=== PATIENT | female | born 1950 | race Caucasian/White ===

== ENCOUNTER 2020-08-24 12:10 | Outpatient (NON) | payer MEDICARE, SELFPAY ==
[2020-08-25 00:30] LABS: SARS-CoV-2 RNA PCR Positive
== END 2020-08-24 12:11 ==
LOC: ANHCOVIDDT 12:11
PROVIDERS: PCP Family Medicine; Visit Provider Family Medicine
DX: U07.1 COVID-19 (principal)
CPT/HCPCS: 87635; C9803; U0003

== ENCOUNTER 2020-11-11 14:08 | Outpatient (CLI) | payer MEDICARE, SELFPAY ==
--- NOTE | ~2020-11-11 | MM_ITS ---
EXAMINATION: MM screening [place] [facility] HISTORY: Screening TECHNIQUE: Craniocaudal and mediolateral oblique 3-D tomosynthesis images were obtained and synthetic 2-D images were generated. CAD analysis was submitted and interpreted. COMPARISON: Comparison to multiple prior studies sequentially, with oldest reviewed study dated 12/2016. BREAST PARENCHYMAL COMPOSITION: The breasts are extremely dense, which lowers the sensitivity of mamm ography. FINDINGS: There is no evidence of suspicious mass, calcification, or architectural distortion to sugg est malignancy in either breast. There has been no suspicious interval change. IMPRESSION: 1. No mammographic evidence of malignancy. 2. Recommend routine screening mammography in one year. BI-RADS Category 1: Negative Reviewed, dictated and finalized at location A. 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
== END 2020-11-11 14:09 | disposition home or self-care (01) ==
LOC: ANHIMG 14:13
PROVIDERS: PCP Physician Assistant; Visit Provider Obstetrics & Gynecology
DX: Z12.31 Encounter for screening mammogram for malignant neoplasm of breast (principal)
CPT/HCPCS: 77063; 77067

== ENCOUNTER 2021-11-24 08:40 | Outpatient (CLI) | payer MEDICARE, SELFPAY ==
--- NOTE | ~2021-11-24 | MM_ITS ---
EXAMINATION: MM screening [facility] HISTORY: Screening mammogram TECHNIQUE: Craniocaudal and mediolateral oblique 3-D tomosynthesis images were obtained and synthetic 2-D images were generated. CAD analysis was submitted and interpreted. COMPARISON: 11/11/2020, 11/05/2019, 11/21/2018, 10/30/2018 BREAST PARENCHYMAL COMPOSITION: The breasts are extremely dense, which lowers the sensitivity of mamm ography. FINDINGS: Scattered benign-appearing calcifications are present. There is no evidence of suspicious m ass, calcification, or architectural distortion to suggest malignancy in either breast. There has bee n no suspicious interval change. IMPRESSION: 1. No mammographic evidence of malignancy. 2. Recommend routine screening mammography in one year. BI-RADS Category 2: Benign finding(s). Reviewed, dictated and finalized at location A. 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
== END 2021-11-24 08:41 | disposition home or self-care (01) ==
LOC: ANHIMG 08:45
PROVIDERS: PCP Family Medicine; Visit Provider Nurse Practitioner Obstetrics & Gynecology
DX: Z12.31 Encounter for screening mammogram for malignant neoplasm of breast (principal)
CPT/HCPCS: 77063; 77067

== ENCOUNTER 2022-02-16 12:50 | Outpatient (CLI) | payer MEDICARE, SELFPAY ==
--- NOTE | ~2022-02-16 | DEXA_ITS ---
Bone Density Report Name: LINO MATUTE Age: 72 Sex: Female Ethnicity: White Date of : 1950 Indication: monitoring treatment; height loss; postmenopausal Referring Provider: CHIKA, FRANCISCA Ward Study: Bone densitometry was performed. Exam Date: February 16, 2022 Accession number: [id number] Bone Density: Region BMD T-score Z-score Classification AP Spine(L1-L4) 1.100 0.5 2.8 Normal Femoral Neck (Left) 0.861 0.1 2.1 Normal Total Hip (Left) 0.951 0.1 1.7 Normal Femoral Neck (Right) 0.819 -0.3 1.7 Normal Total Hip (Right) 0.976 0.3 1.9 Normal Total Hip Mean 0.964 0.2 1.8 Normal World Health Organization criteria for BMD impression classify patients as: Normal (T-score at or above -1.0), Osteopenia (T-score between -1.0 and -2.5), or Osteoporosis (T-score at or below -2.5). 10-year Fracture Risk: FRAX not reported because: All T-scores for Spine Total, Hip Total, Femoral Neck at or above -1.0 Treated for osteoporosis Previous Exams: Region Exam Age BMD T-score BMD Change BMD Change Date g/cm2 vs Baseline vs Previous AP Spine (L1-L4) 02/16/2022 72 1.100 0.5 0.114 (11.6%)# 0.114 (11.6%)# 08/22/2012 62 0.986 -0.6 Total Hip(Left) 02/16/2022 72 0.951 0.1 -0.022 (-2.3%) -0.035 (-3.6%) 11/01/2016 66 0.987 0.4 0.013 (1.3%)# 0.013 (1.3%)# 08/22/2012 62 0.974 0.3 Total Hip(Right) 02/16/2022 72 0.976 0.3 -0.024 (-2.4%) -0.017 (-1.7%) 11/01/2016 66 0.993 0.4 -0.007 (-0.7%) -0.007 (-0.7%) 08/22/2012 62 1.000 0.5 *Denotes significance at 95% confidence level, LSC for AP Spine = 0.022 g/cm2, LSC for Total Hip = 0.027 g/cm2 # Denotes dissimilar scan types or analysis methods Clinical Information Provided by Patient: Is being treated for osteoporosis Has used the following medications: Fosamax (i.e. alendronate) Patient maximum height was 65 Menopause Age: 49 Onset of menses at age 13 Number of children 0 Missed period for more than 6 months in a row Impression: The patient has normal bone mass. The BMD for the Total Hip(Left) decreased, changing by -3.6% since the last DXA exam. Discussion: SIGNIFICANT BONE LOSS OBSERVED. Adherence to therapy (including calcium and vitamin D intake) should be assessed. If compliance is not a factor, review management and exclusion of secondary causes of bone loss. It is important to ask patients whether they are taking their medications and to e
== END 2022-02-16 12:51 | disposition home or self-care (01) ==
PROVIDERS: PCP Family Medicine; Visit Provider Nurse Practitioner Obstetrics & Gynecology
DX: Z78.0 Asymptomatic menopausal state (principal)
CPT/HCPCS: 77080

== ENCOUNTER 2022-11-16 15:27 | Emergency (ER) | payer MEDICARE, SELFPAY ==
--- NOTE | ~2022-11-16 | XR_ITS ---
EXAMINATION: XR ankle LT min 3V DATE: 11/16/2022 15:57 INDICATION: Post traumatic lateral left ankle pain and bruising TECHNIQUE: Anteroposterior, oblique, mortise, and lateral views of the left ankle were obtained. COMPARISON: None. FINDINGS: There is a nondisplaced oblique fracture through the distal fibula with a fracture plane exiting medi ally at the level of the tibiotalar joint. No other fracture identified. Specifically the medial and posterior malleoli as well as the talar dome are intact. Alignment at the left ankle and hindfoot re jyoti essentially anatomic with a congruent ankle mortise. Suggestion mild hallux valgus with mild os teoarthritis at the first metacarpophalangeal joint. Soft tissue swelling overlying the lateral malle olus. No ankle joint effusion. IMPRESSION: 1. Nondisplaced oblique fracture of the distal left fibula consistent with a Thurman type B injury josue indra. Reviewed, dictated and finalized at location A. 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 Nondisplaced oblique fracture of the distal left fibula consistent with a We dylon type B injury pattern.
[2022-11-16 15:41] VITALS: BP 133/68; PULSE 78; RESP 16; TEMP 36.4; O2SAT 98
--- NOTE | 2022-11-16 16:08 | ED.LOWEXIN ---
HPI - Extremity Injury (Lower) General Chief Complaint: Extremity Injury, Lower Stated Complaint: Fall Injury/Left Ankle Source: patient and RN notes reviewed History of Present Illness HPI Narrative: 72-year-old female presents to urgent care with complaints of left lateral ankle pain. Patient states approximately 3 hours prior to arrival she slipped on the gravel causing her to fall onto her buttocks. Patient reports her only injury is her left lateral ankle. Patient has some left leg pain and believes this is from walking on it weird. Patient denies any head injury or LOC. Denies any neck pain, chest pain, shortness of breath, abdominal pain, headache, dizziness, or vomiting. The patient has not had anything for her pain. Some parts of this dictation were generated by voice recognition software and may contain typographical and/or grammatical inaccuracies. Related Data Home Medications Medication Instructions Recorded Confirmed estradiol 1 mg tablet 1 mg PO DAILY 03/29/20 09/19/22 medroxyprogesterone 5 mg tablet 5 mg PO DAILY 03/29/20 09/19/22 Saccharomyces boulardii 250 mg 5,000 mmu cells PO DAILY 04/26/22 09/19/22 capsule (Daily Probiotic (S. boulardii)) calcium carbonate 500 mg calcium 500 mg PO DAILY 04/26/22 09/19/22 (1,250 mg) chewable tablet (Calcium 500) glucosamine-chondroitin 750 mg-600 tablet PO 04/26/22 09/19/22 mg tablet loratadine 10 mg tablet 10 mg PO DAILY 04/26/22 09/19/22 magnesium 250 mg tablet 250 mg PO DAILY 04/26/22 09/19/22 melatonin 1 mg tablet 1 mg PO QHS 04/26/22 09/19/22 multivitamin 1 tablet PO DAILY 04/26/22 09/19/22 omega-3 fatty acids-fish oil 360 1 cap PO DAILY 04/26/22 09/19/22 mg-1,200 mg capsule (Fish Oil) Allergies Allergy/AdvReac Type Severity Reaction Status Date / Time tetracycline Allergy Unknown Skin Verified 11/01/22 08:21 irritation Review of Systems Review of Systems: CONSTITUTIONAL: Denies fever, chills, or sweats. EYES: Denies visual changes, redness, or discharge. ENT: Denies otalgia and sore throat CARDIOVASCULAR: Denies chest pain, palpitations, or edema. RESPIRATORY: Denies cough or dyspnea. GASTROINTESTINAL: Denies abdominal pain, nausea, vomiting, or diarrhea. GENITOURINARY: Denies dysuria or hematuria. SKIN: Denies rash or itching. MUSCULOSKELETAL: Reports left lateral ankle pain and swelling NEUROLOGIC: Denies headache, numbness, or weakness. [facility] Past Medical History Medical History Hypothyroidism determined by thyroid function test Family History Family History Sibling Family history of cardiovascular disease Social History Social History Smoking status: Never smoker Second hand tobacco smoke exposure: No Alcohol intake: current Alcohol use details: socially; seldom Substance use: never Substance use type: does not use Lack of Transportation: No Lack of Food: Never True Current Housing: I Have Housing Concerned About Future Housing: No Difficulty Paying Gas/Electric Bills: No Difficulty Paying for Meds: No Currently Unemployed: No Education: Trade/Vocational Certificate Difficulty w/ Childcare or Family Care: No Occupation/Education: retired Gender identity (if verbalized by the patient): Female Spiritual care concerns: No Agree to blood products: Yes Comments At the time of my signature, I reviewed and agree with the nursing past medical, surgical, social, and family history. There is no relevant family history pertinent to the patient complaint. Exam Narrative: GENERAL: This is a well-nourished, well-developed patient, in no apparent distress. HEAD: normocephalic, atraumatic. EYES: PERRL. Sclera clear/white. Vision is grossly intact. EARS: External ears normal, auditory canals clear and without drainage, TMs n
== END 2022-11-16 16:46 | disposition home or self-care (01) ==
PROVIDERS: Emergency Provider Nurse Practitioner Family; PCP Family Medicine
DX: S82.832A Other fracture of upper and lower end of left fibula, initial encounter for closed fracture (principal); W01.0XXA Fall on same level from slipping, tripping and stumbling without subsequent striking against object, initial encounter; E03.9 Hypothyroidism, unspecified
CPT/HCPCS: 29125; 73610; 99214; G0463

== ENCOUNTER 2023-01-17 08:12 | Outpatient (CLI) | payer MEDICARE, SELFPAY ==
--- NOTE | ~2023-01-17 | MM_ITS ---
EXAMINATION: MM screening [place] [facility] HISTORY: Screening mammogram TECHNIQUE: Craniocaudal and mediolateral oblique 3-D tomosynthesis images were obtained and synthetic 2-D images were generated. CAD analysis was submitted and interpreted. COMPARISON: November 24, 2021, November 11, 2020, November 05, 2019 bilateral screening mammogram [place] BREAST PARENCHYMAL COMPOSITION: The breasts are extremely dense, which lowers the sensitivity of mamm ography. FINDINGS: Scattered bilateral benign calcifications. There is no evidence of suspicious mass, calcifi cation, or architectural distortion to suggest malignancy in either breast. There has been no suspici ous interval change. IMPRESSION: 1. No mammographic evidence of malignancy. 2. Recommend routine screening mammography in one year. BI-RADS Category 2: Benign finding(s). Reviewed, dictated and finalized at location A.
== END 2023-01-17 08:13 | disposition home or self-care (01) ==
LOC: ANHIMG 08:14
PROVIDERS: PCP Family Medicine; Visit Provider Nurse Practitioner Obstetrics & Gynecology
DX: Z12.31 Encounter for screening mammogram for malignant neoplasm of breast (principal)
CPT/HCPCS: 77063; 77067

== ENCOUNTER 2024-03-07 14:04 | Outpatient (CLI) | payer MEDICARE, SELFPAY ==
--- NOTE | ~2024-03-07 | MM_ITS ---
EXAMINATION: MM screening [place] [facility] HISTORY: Screening mammogram TECHNIQUE: Craniocaudal and mediolateral oblique 3-D tomosynthesis images were obtained and synthetic 2-D images were generated. Left rotated lateral craniocaudal view. CAD analysis was submitted and in terpreted. COMPARISON: January 17, 2023, November 24, 2021 bilateral screening mammogram examinations BREAST PARENCHYMAL COMPOSITION: The breasts are extremely dense, which lowers the sensitivity of mamm ography. FINDINGS: Numerous bilateral benign calcifications are again noted. There is no evidence of suspiciou s mass, calcification, or architectural distortion to suggest malignancy in either breast. There has been no suspicious interval change. IMPRESSION: 1. No mammographic evidence of malignancy. 2. Recommend routine screening mammography in one year. BI-RADS Category 2: Benign finding(s). Reviewed, dictated and finalized at location B.
== END 2024-03-07 14:05 | disposition home or self-care (01) ==
LOC: ANHIMG 14:08
PROVIDERS: PCP Family Medicine; Visit Provider Nurse Practitioner Obstetrics & Gynecology
DX: Z12.31 Encounter for screening mammogram for malignant neoplasm of breast (principal)
CPT/HCPCS: 77063; 77067

== ENCOUNTER 2024-06-11 08:54 | Outpatient (CLI) | payer MEDICARE, SELFPAY ==
--- NOTE | ~2024-06-11 | XR_ITS ---
Lumbosacral Spine: AP, oblique, and lateral views Clinical History: Pain Findings: The normal lordotic curve is maintained. No fracture seen. There is 4 mm retrolisthesis of L2 over L3. There is severe degenerative tearing at L1-L2, L2-L3, L4-L5, and L5-S1. There is moderate to advanced facet arthropathy throughout the lumbar spine. The sacroiliac joints are normally outlin ed. Impression: Advanced degenerative spondylosis, as above. 4 mm retrolisthesis of L2 over L3. Reviewed, dictated and finalized at location M. Impression: Advanced degenerative spondylosis, as above. 4 mm retrolisthesis of L2 over L3.
--- NOTE | ~2024-06-11 | XR_ITS ---
AP view of the pelvis and AP and lateral views of the bilateral hips Clinical history: Pain Findings: No acute fracture or dislocation is seen. Osseous alignment is anatomic. Bilateral hip and SI joint spaces are preserved. Soft tissues are unremarkable. Impression: No significant abnormality is seen. Reviewed, dictated and finalized at [facility]. Impression: No significant abnormality is seen.
== END 2024-06-11 08:55 | disposition home or self-care (01) ==
LOC: ANHIMG 08:59
PROVIDERS: PCP Family Medicine; Visit Provider Physician Assistant Medical
DX: M47.816 Spondylosis without myelopathy or radiculopathy, lumbar region (principal); M25.551 Pain in right hip; M25.552 Pain in left hip
CPT/HCPCS: 72110; 73521

== ENCOUNTER 2024-06-24 12:13 | Outpatient (RCR) | payer MEDICARE, SELFPAY ==
--- NOTE | 2024-06-24 12:08 | OPREHPOC ---
Outpatient Therapy Plan of Care This is a Multidisciplinary Plan of Care that may contain components documented by all disciplines (PT, OT, and ST.) PT Problem 1 PT Problem #1 Knowledge Deficit PT Goal 1 Goal / Goal Update The patient will be independent in a home exercise program. Target Visit 4 PT Problem 2 PT Problem #2 Pain PT Goal 1 Goal / Goal Update The patient will report no greater than 1/10 low back pain with sitting for 2+ hours. Target Visit 8 PT Problem 3 PT Problem #3 Impaired Functional Mobil PT Goal 1 Goal / Goal Update The patient will demonstrate 10% or less self perceived disability per the Back Index questionnaire. Target Visit 8 PT Problem 4 PT Problem #4 Impaired Strength PT Goal 1 Goal / Goal Update The patient will demonstrate 4-/5 or greater bilateral hip abduction and extension strength. Target Visit 8
--- NOTE | 2024-06-24 12:08 | PTOPEVAL1 ---
Assessment and note entered by Ava Hernandez, PT Evaluation Information Assessment Status Evaluation Diagnosis M43.06 ICD-10 Condition Codes (PT) Pain in low back M54.50 Onset 06/18/24 Subjective Information Chana Snell reports she has had chronic low back pain for several years. She recently had x- rays performed and was told she has degenerative changes. She is noting stiffness in the lower back that makes it feel like her back is about to break. She notes worse symptoms with prolonged sitting. She has a history of sciatica in the past that was treated by a chiropractor. Reported Pain Level Pain Score 0: Self Report Assessment PT Clinical Summary Chana Snell presents with chronic and intermittent low back pain. She is primarily complaining of stiffness. She has difficulty with prolonged sitting. She objectively demonstrates decreased lumbar AROM, decreased bilateral hamstring and piriformis flexbility, decreased core and hip strength, and decreased PA mobility in the lower thoracic and upper lumbar spine. She will benefit from skilled PT to address these limitations. Plan of Care Interventions Electrical Stimulation,Hot Pack/Cold Pack,Manual Therapy,Mechanical Traction,Neuro Re-education, Patient/Caregiver Educati,Therapeutic Activities, Therapeutic Exercise PT Services Indicated Yes Treatment Frequency and 2 times a week for 8 visits Duration These treatments will address the objective and functional deficits as defined above. The patient will be advanced safely and appropriately in order for the patient to progress towards his/her prior level of function. Additional exercises will be introduced and as well as a comprehensive home exercise program upon discharge, if needed, ?to ensure carryover of functional gains achieved in the clinic. This treatment plan has been reviewed and agreement upon by the patient.
--- NOTE | 2024-07-17 10:21 | OPREHPOC ---
Outpatient Therapy Plan of Care This is a Multidisciplinary Plan of Care that may contain components documented by all disciplines (PT, OT, and ST.) PT Problem 1 PT Problem #1 Knowledge Deficit PT Goal 1 Goal / Goal Update The patient will be independent in a home exercise program. Target Visit 4 Progress Met PT Problem 2 PT Problem #2 Pain PT Goal 1 Goal / Goal Update The patient will report no greater than 1/10 low back pain with sitting for 2+ hours. Target Visit 8 Progress Not Met PT Problem 3 PT Problem #3 Impaired Functional Mobil PT Goal 1 Goal / Goal Update The patient will demonstrate 10% or less self perceived disability per the Back Index questionnaire. Target Visit 8 Progress Not Met PT Problem 4 PT Problem #4 Impaired Strength PT Goal 1 Goal / Goal Update The patient will demonstrate 4-/5 or greater bilateral hip abduction and extension strength. Target Visit 8 Progress Met
--- NOTE | 2024-07-17 10:22 | PTOPDC ---
Assessment and note entered by JT File, PT Evaluation Information Assessment Status Discharge Diagnosis M43.06 ICD-10 Condition Codes (PT) Pain in low back M54.50 Onset 06/18/24 Subjective Information patient reports she feels better now than she did this morning, but still has some pain in the R lower back/flank in the mornings. she reports the longer she is up and moving, the better she feels. she reports she does feel a little better, but no significantly since being in skilled PT. Reported Pain Level Pain Score 2: Self Report Assessment PT Clinical Summary mrs. briceno presents to skilled PT for her 8th skilled PT visit today. she presents today with continued symptoms of pain with sleeping and no change in subjective functional reports per the oswestry. she has met HEP and strength goals of the hips. however, this only attributes for 50% of her goals. she will DC skilled PT today, continue with HEP independent, and follow up with PCP for referral to pain management or other specialty care. Plan of Care PT Services Indicated Yes
== END 2024-07-17 10:48 | disposition home or self-care (01) ==
LOC: CHSPT 12:13
PROVIDERS: Visit Provider Physician Assistant Medical
DX: M43.06 Spondylolysis, lumbar region (principal)
CPT/HCPCS: 97110; 97140; 97161

== ENCOUNTER 2024-10-01 10:36 | Outpatient (CLI) | payer MEDICARE, SELFPAY ==
--- NOTE | ~2024-10-01 | MR_ITS ---
MRI of the lumbar spine Clinical History: Spondylolisthesis Technique: Axial T2-weighted images, and sagittal T1-weighted, T2-weighted, and T2 fat-sat images wer e acquired. Findings: No acute fracture seen. There is 4-5 mm retrolisthesis of L2 over L3. There is minimal grad e 1 retrolisthesis of L4 over L5. No suspicious bone marrow signal abnormality seen. There is moderat e type I changes about the L1-L2 and L2-L3 disc spaces. At L1-L2, there is severe degenerative disc narrowing. There is minimal disc bulge with moderate to s evere facet arthropathy. No central canal stenosis. There is moderate right neural foraminal narrowin g, and mild left neural foraminal narrowing. At L2-L3, there is severe degenerative spurring. There is diffuse disc bulge with moderate to severe facet arthropathy. There is left lateral recess stenosis and severe left neural foraminal narrowing. There is moderate right neural foraminal narrowing. No ariadne central canal stenosis. L3-L4, there is mild disc bulge and moderate facet arthropathy. No central canal stenosis. There is m oderate left neural foraminal narrowing. Right neural foramen preserved. At L4-L5, there is severe degenerative disc narrowing. There is mild disc bulge with moderate facet a rthropathy. No central canal stenosis. There is moderate bilateral neural foraminal narrowing. At L5-S1, there is severe degenerative disc narrowing, with moderate facet arthropathy. No central ca nal stenosis. There is moderate to advanced bilateral neural foraminal narrowing. Paravertebral soft tissues are unremarkable. Impression: Severe degenerative spondylosis, with extensive degenerative disc narrowing and multilevel advanced n eural foraminal narrowing. Please see details above. 4-5 mm retrolisthesis of L2 over L3. Minimal grade 1 retrolisthesis of L4 over L5. Reviewed, dictated and finalized at location . 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 Please see details above. 4-5 mm retrolisthesis of L2 over L3. Minimal grade 1 retrolisthesis of L4 over L5.
== END 2024-10-01 10:37 | disposition home or self-care (01) ==
LOC: MICIMG 10:36
PROVIDERS: PCP Family Medicine; Visit Provider Student in an Organized Health Care Education/Training Program
DX: M43.16 Spondylolisthesis, lumbar region (principal); M47.896 Other spondylosis, lumbar region
CPT/HCPCS: 72148

== ENCOUNTER 2024-12-22 08:38 | Outpatient (CLI) | payer MEDICARE, SELFPAY ==
[2024-12-22 09:00] LABS: Basophils Absolute Auto 0.04 K/mm3 (0.00-0.10); Basophils Percent Auto 0.6 % (0.0-1.0); Eosinophils Absolute Auto 0.25 K/mm3 (0.02-0.50); Eosinophils Percent Auto 3.8 % (1.0-6.0); Hematocrit 41.1 % (35.0-42.0); Hemoglobin 12.9 g/dL (11.7-13.8); Immature Granulocyte Absolute 0.02 K/mm3 (0.00-0.00); Immature Granulocyte Percent A 0.3 % (0.0-0.0); Lymphocytes Absolute Auto 2.03 K/mm3 (1.10-4.50); Lymphocytes Percent Auto 30.9 % (18.0-42.0); Mean Corpuscular HGB Conc 31.4 g/dL (32-36); Mean Corpuscular Volume 95.6 fL (78.0-102.0); Monocytes Absolute Auto 0.63 K/mm3 (0.10-0.90); Monocytes Percent Auto 9.6 % (2.0-11.0); Neutrophils Absolute Auto 3.61 K/mm3 (1.70-7.20); Neutrophils Percent Auto 54.8 % (50.0-70.0); Platelet Count Result 185 K/mm3 (150-420); Red Cell Distribution Width 13.8 % (11.6-14.4); White Blood Count 6.6 K/mm3 (4.8-10.8)
--- OUTSIDE RECORDS SUMMARY | 2024-12-22 09:15 | XMS_ITS | Data Portability ---
Author Organization [facility] Address [address] [place] [address] Care Team Providers Care Account Development Associate Name Role Phone NIKKO TINOCO Primary Care Provider [phone] Assessment Encounter Date Assessment Date Assessment LastModified by Organization Details LastModified Time 11/02/2021 11/02/2021 Annual gynecological exam performed. Patient will come back in a year unless there are new symptoms. Not available 11/02/2021 12:47:54 12/20/2022 12/20/2022 Annual gynecological exam performed. Patient will come back in a year unless there are new symptoms. Not available 12/20/2022 10:22:32 05/21/2024 05/21/2024 Annual gynecological exam performed. Patient will come back in a year unless there are new symptoms. [email or web address] Not available 05/21/2024 13:57:09 Plan of Treatment Reminders Order Date Submit Date Provider Last Modified By Organization Details Last Modified Time Details Appointments [facility] 2024 08:30A BRITNEY Camargo Not available Not available Not available Lab None recorded. Referral None recorded. Procedures None recorded. Surgeries None recorded. Imaging DEXA, axial skeleton + vertebral fracture assessmen t [address] [facility], [address], Chandra [facility], [place], [address], 12/02/2024 04:06:59 MAMMO, screening , digital, bilateral [address] [facility], [address], [address], [place], [address], 09/10/2024 04:03:54 MAMMO, screening , bilateral 2022 023 [facility], [address], [address], [place], [address], 09/23/2023 05:01:16 MAMMO, screening , bilateral 2021 022 [facility], [address], [address], [place], [address], 12/09/2021 09:46:51 DEXA, axial skeleton + vertebral fracture assessmen t 2021 022 [facility], [address], [address], [place], [address], 02/23/2022 11:53:05 Medication Orders estradiol 0.025 mg/24 hr weekly transderm al patch 2023 024 [facility] [id number] In [facility], [address] [place], [address], 09/03/2024 11:04:40 medroxypr ogesteron e 5 mg tablet 2023 024 [facility] [id number] In [facility], [address] [place], [address], 09/03/2024 11:04:26 estradiol 0.025 mg/24 hr weekly transderm al patch 2023 024 [facility] [id number] In [facility], [address] [place], [address], 05/21/2024 14:26:41 medroxypr ogesteron e 5 mg tablet 2023 024 [facility] [address] In [facility], [address] [place], [address], 05/21/2024 14:27:36 estradiol 1 mg tablet 2022 023 [facility] [address] In [facility], [facility] [place], [address], 05/21/2024 15:02:24 Provera 5 mg tablet 2022 023 [facility] [address] In [address] [place], [address], 12/20/2022 10:30:43 estradiol 1 mg tablet 2021 022 [facility] [address] In [facility], [address] [place] [address], [address], 05/21/2024 15:02:24 Provera 5 mg tablet 2021 022 [facility] [address] In [address] [facility], [place], [address], 11/02/2021 13:01:22 estradiol 1 mg tablet 2020 021 [facility] [address] In [facility], [facility] [place], [address], 05/21/2024 15:02:24 Provera 5 mg tablet 2020 [address]21 [facility] [address], [place], [address], 11/15/2020 15:47:05 Patient TargetsNo targets recorded. Patient InstructionsNo instructions recorded. Reason for Referral None Reported. Results Created Date Observation Date Name Description Value Unit Range Abnormal Flag Note LastModifiedBy Organization Detail LastModifiedTime 11/11/19 21 11/11/2020 bautista VINCENT bilat eral No observ ation record ed. [place] [id number], [place], [address], 11/12/2020 11:51:43 12/09/19 22 MAMMO , scree josé miguel, bilat eral No observ ation record ed. [facility] [address], [place], [address], 12/14/2021 14:14:34 02/24/20 22 DEXA, axial skele ton + verte bral fract ure asses sment No observ ation record ed. [address] [place] [address] Ctr [address], [place], [address], 03/06/2022 15:56:10 Result Notes None recorded. Problems Name Problem SNOMED Code Status Onset Date Resolution Date Notes Provider Name and Address Organization Details Recorded Time Screenin g for malignan t neoplasm of rectum Completed 201603/06/2022 Encounter for screening for malignant neoplasm of rectum;Pr actice ID: [address] [facility] 2 15:58:[address] Concept Completed 201703/06/2022 Encntr for general adult medical exam w/o abnormal findings; Practice ID: [address] [facility] 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 2 15:58:32 Menopaus e present [id number] Completed 201903/06/2022 Menopausa l and female climacter ic states;Pr actice ID: [address] [facility] 2 15:58:32 Adult health examinat ion Completed 201303/06/2022 Routine general medical examinati on at a health care facility; Practice ID: [address] [facility] 2 15:58:31 Speciali zed medical examinat ion Completed 201303/06/2022 Routine gynecolog ical examinati on;Practi ce ID: 0001 [facility] 15:58:32 Screenin g for malignan t neoplasm of cervix Completed 201303/06/2022 Pap Smear;Pra ctice ID: 0001 [facility] 15:58:31 Human papillom a virus infectio n [id number] Completed 201403/06/2022 HUMAN PAPILLOMA VIRUS IN CONDITION S CLASSIFIE D ELSEWHERE AND OF UNSPECIFI ED SITE;Prac kayla ID: 0001 [facility] 15:58:31 Atypical glandula r cells on cervical Papanico laou smear [id number] Completed 201403/06/2022 Pap Abnormal Endocerv Endometri al Saeed;Prac kayla ID: 0001 Nika Erickson [facility] 2 15:58:32 Conducti on disorder of the heart [id number] Completed 201303/06/2022 Bradycard ia;Record ed Elsewhere : No Locati on: [facility] So urce: EHR Chron ic: N Practic e ID: 0001 Bill able Time: 03:23:25 PM [facility] 15:58:32 Microsco pic hematuri a [id number] Completed 201103/06/2022 HEMATURIA MICROSCOP IC;Practi ce ID: 0001 Nika Erickson [facility] 2 15:58:31 Mammogra phy abnormal [id number] Completed 201303/06/2022 Unspecifi ed abnormal mammogram ;Recorded Elsewhere : No Locati on: [facility] So urce: EHR Chron ic: N Practic e ID: 0001 Bill able Time: 08:46:20 AM Nika lewis [facility] 2 15:58:31 Radiolog ic finding [id number] Completed 201803/06/2022 Oth abn and inconclus kelvin findings on dx imaging of breast;Re corded Elsewhere : No Locati on: [facility] So urce: EHR Chron ic: N Practic e ID: 0001 Bill able Time: 09:16:36 AM Nika lewis [facility] 2 15:58:31 Abnormal cervical Papanico laou smear [id number] Completed 201303/06/2022 Other abnormal papanicol aou smear of cervix and cervical HPV;Recor ded Elsewhere : No Locati on: [facility] So urce: EHR Chron ic: N Practic e ID: 0001 Bill able Time: 09:00:00 AM Nika lewis [facility] 2 15:58:32 Problem Notes None recorded. Procedures Surgical History Date Name Laterality Status Provider Name and Address Organization Details Recorded Time 03/07/20 24 Date of Last Mammogram completed Dagmar Ybarra [facility] 09/03/2024 10:00:49 10/22/19 19 Date of Last Pap Smear completed Nika Scott [facility] 12/20/2022 10:23:30 10/15/19 07 Hysteroscopy completed Sherrie Feldman [facility] 11/22/2020 22:55:51 10/15/19 06 completed Sherrie Feldman [facility] 11/22/2020 22:57:25 10/15/19 06 Colonoscopy completed Sherrie Feldman [facility] 11/22/2020 22:54:49 10/15/18 70 Hysteroscopy completed Sherrie Feldman [facility] 11/22/2020 22:56:49 Imaging Results Imaging Date Name Status LastModified by [facility] Details LastModified Time 11/11/2020 MAMMO, screening, bilateral completed [facility] [address], [place], [address], 11/12/2020 11:51:43 12/09/2021 MAMMO, screening, bilateral completed [facility] [address], [place], [address], 12/14/2021 14:14:34 02/23/2022 DEXA, axial skeleton + vertebral fracture assessment completed [address] [facility] [address], [place], [address], 03/06/2022 15:56:10 Procedure Notes None recorded. Medical Equipment None Reported. Allergies No known drug allergies Medications Name Sig Start Date Stop Date Status Note LastModified by Organization Details LastModified Time amoxicill in 500 mg capsule TAKE 1 CAPSULE BY MOUTH EVERY 8 HOURS UNTIL GONE 05/21 completed Not Available Not Available Not Available paroxetin e 10 mg tablet take 1 tablet by oral route every day 10/22 completed Prescrib ed Elsewher e: No Locat ion: [facility] odify By: reyna Gaspar ncounter DateTime : 10/18/19 18 02:30:00 PM Not Available Not Available Not Available Evista 60 mg tablet take 1 tablet by oral route every day 10/17 completed Prescrib ed Elsewher e: No [facility] odify By: cierra tz Encou nter DateTime : 12/28/19 16 11:19:23 AM Not Available Not Available Not Available trazodone 50 mg tablet TAKE ONE-HALF TABLET BY MOUTH EVERY DAY AT BEDTIME NEEDED FOR INSOMNIA active Not Available Not Available No t Available medroxypr ogesteron e 5 mg tablet TAKE 1 TABLET BY MOUTH EVERY DAY 2023 active Not Available Not Available Not Avai lable simvastat in 10 mg tablet TAKE 1 TABLET BY MOUTH DAILY 05/21 completed Not Available Not Available Not Available amoxicill in 500 mg tablet TAKE 1 TABLET BY MOUTH EVERY 8 HOURS UNTIL GONE 05/21 completed Not Available Not Available Not Available cefadroxi l 500 mg capsule TAKE 1 CAPSULE BY MOUTH TWICE A DAY FOR 10 DAYS 05/21 completed Not Available Not Available Not Available levothyro xine 100 mcg tablet TAKE 1 TABLET BY MOUTH EVERY MORNING ON SUNDAY, SUNDAY , SUNDAY , AND SUNDAYS active Not Available Not Available No t Available alprazola m 0.25 mg tablet active Not Available Not Available Not Available estradiol 0.025 mg/24 hr weekly transderm al patch Apply 1 patch every week by transder mal route. 2023 active Not Available Not Available Not Avai lable estradiol 1 mg tablet TAKE 1 TABLET BY MOUTH EVERY DAY DIRECTED 05/21 completed Not Available Not Available Not Available simvastat in 5 mg tablet take 1 tablet by ORAL route every day in the evening 11/02 completed Prescrib ed Elsewher e: Yes [facility] By: kamlesh cavazos DateTime : 05/20/20 11 11:44:09 AM Not Available Not Available Not Available simvastat in 20 mg tablet TAKE 1 TABLET BY MOUTH DAILY active Not Available Not Available No t Available magnesium 100 mg capsule active Prescrib ed Elsewher e: Yes Loca tion: Edil[facility] gaspar [facility] odify By: kaleigh hayes DateTime : 07/16/20 12 10:45:00 AM Not Available Not Available Not Available Synthroid 75 mcg tablet take 1 tablet (75MCG) by oral route every day 08/21 completed Prescrib ed Elsewher e: No Locat ion: [facility] odify By: rai buck DateTime : 07/22/20 13 12:08:03 PM Not Available Not Available Not Available Synthroid 50 mcg tablet take 1 tablet (50MCG) by ORAL route every day 07/21 completed Prescrib ed Elsewher e: No Locat ion: [facility] odify By: kaleigh hayes DateTime : 03/07/20 12 02:54:32 PM Not Available Not Available Not Available sertralin e 25 mg tablet TAKE 1 TABLET BY MOUTH DAILY 12/20 completed Not Available Not Available Not Available hydroxyzi ne HCl 25 mg tablet TAKE 1 TABLET BY MOUTH THREE TIMES A DAY NEEDED FOR ITCHING 12/20 completed Not Available Not Available Not Available estradiol 0.01% (0.1 mg/gram) vaginal cream Insert 1 applicat orful 1 time a week 11/02 completed Not Available Not Available Not Available methylpre dnisolone 4 mg tablets in a dose pack TAKE 6 TABLETS ON DAY 1 DIRECTED ON PACKAGE AND DECREASE BY 1 TAB EACH DAY FOR A TOTAL OF 6 DAYS 05/21 completed Not Available Not Available Not Available sertralin e 50 mg tablet TAKE 1 TABLET BY MOUTH EVERY DAY active Not Available Not Available No t Available medroxypr ogesteron e 150 mg/mL intramusc ular suspensio n inject 1 millilit er by intramus cular route every 3 months 11/02 completed Prescrib ed Elsewher e: Yes [facility] By: reyna buck DateTime : 10/22/19 09:30:00 AM Not Available Not Available Not Available levothyro xine 112 mcg tablet PLEASE SEE ATTACHED FOR DETAILED DIRECTIO NS 09/03 completed Not Available Not Available Not Available Vitamins and Minerals tablet active Prescrib ed Elsewher e: Yes Loca tion: Edil[facility] gaspar [facility] odify By: kaleigh hayes DateTime : 07/16/20 12 10:45:00 AM Not Available Not Available Not Available Prempro 0.45 mg-1.5 mg tablet take 1 tablet by oral route every day 12/27 completed Prescrib ed Elsewher e: No Locat ion: [facility] gaspar [facility] odify By: jhcelsa cavazos DateTime : 09/27/20 01:30:00 PM Not Available Not Available Not Available Calcio Inocencio 500 mg tablet 12/20 completed Prescrib ed Elsewher e: Yes Loca tion: [facility] odify By: kaleigh hayes DateTime : 07/16/20 12 10:45:00 AM Not Available Not Available Not Available Fish Oil 100 mg-160 mg-1,000 mg capsule active Prescrib ed Elsewher e: Yes Loca tion: [facility] odify By: kaleigh hayes DateTime : 07/16/20 12 10:45:00 AM Not Available Not Available Not Available glucosami ne-chondr oitin 167 mg-133 mg capsule active Prescrib ed Elsewher e: Yes Loca tion: [facility] odify By: kaleigh hayes DateTime : 07/16/20 12 10:45:00 AM Not Available Not Available Not Available Paxlovid 300 mg (150 mg x 2)-100 mg tablets in a dose pack TAKE 2 TABLETS (NIRMATR DEMETRIS) AND TAKE 1 TABLET (RITONAV IR) BY MOUTH TWICE A DAY FOR 5 DAYS 05/21 completed Not Available Not Available Not Available Vitals Date Recorded Body height Body mass index (BMI) Body weight Systolic blood pressure Diastolic blood pressure Provider Name and Address Organization Details Last Updated DateTime 11/02/2021 160.66 cm 25.5 kg/m2 89408.89 g 124 mm[Hg] 82 mm[Hg] Real Concepcionstef [facility] 2 12:48:10 Date Recorded Body weight Systolic blood pressure Diastolic blood pressure Provider Name and Address Organization Details Last Updated DateTime 12/20/2022 02481.93 g 110 mm[Hg] 69 mm[Hg] Nika Tyler [facility] 12/20/2022 10:22:51 Date Recorded Body height Body mass index (BMI) Body weight Systolic blood pressure Diastolic blood pressure Provider Name and Address Organization Details Last Updated DateTime 05/21/2024 160.02 cm 23.6 kg/m2 44552.79 g 104 mm[Hg] 67 mm[Hg] Jaclyn Carson [facility] 4 13:59:18 Date Recorded Body height Body mass index (BMI) Body weight Systolic blood pressure Diastolic blood pressure Provider Name and Address Organization Details Last Updated DateTime 09/03/2024 160.02 cm 22.7 kg/m2 37782.82 g 112 mm[Hg] 71 mm[Hg] Dagmar Ybarra [facility] 10:00:40 Date Recorded Body height Body mass index (BMI) Body weight Provider Name and Address Organization Details Last Updated DateTime 11/15/2020 160.66 cm 24.6 kg/m2 48184.93 [address] Francia [facility] 11/15/2020 15:34:51 Date Recorded Systolic blood pressure Diastolic blood pressure Provider Name and Address Organization Details Last Updated DateTime 11/15/2020 122 mm[Hg] 80 mm[Hg] Kristina Gracia, [facility]- [address], [place], [address], [facility] 11/15/2020 15:47:29 Social History Question Answer Notes LastModified by Organizat ion Details LastModified Time Tobacco Smoking Status Never Smoker Nika lewis, [facility] 12/20/2022 10:23:56 Do You Have An Advance Directive? No Information n ot available 11/02/2021 What Is Your Level Of Alcohol Consumption? Occasional [email or web address] Information not available 11/22/2020 Are You Blind Or Do You Have Difficulty Seeing? No Information n ot available 11/02/2021 What Is Your Level Of Caffeine Consumption? None [email or web address] Information not available 09/03/2024 How Much Tobacco Do You Chew? None Information not available 11/02/2021 In The 14 Days Before Symptom Onset, Have You Had Close Contact With A Laboratory-confirm ed COVID-19 While That Case Was Ill? No Information n ot available 11/02/2021 In The 14 Days Before Symptom Onset, Have You Had Close Contact With A Person Who Is Under Investigation For COVID-19 While That Person Was Ill? No Information not available 11/02/2021 Have You Been To An Area Known To Be High Risk For COVID-19? No Information not available 11/02/2021 Are You Deaf Or Do You Have Serious Difficulty Hearing? No Information not available 11/02/2021 What Type Of Diet Are You Following? REGULAR Information n ot available 11/02/2021 What Is The Highest Grade Or Level Of School You Have Completed Or The Highest Degree You Have Received? [id number] Information not available 11/02/2021 What Is Your Occupation? [employer] Information not available 11/02/2021 Are There Any Guns Present In Your Home? No Information not available 11/02/2021 Have You Ever Been Counseled For Unhealthy Alcohol Use? No Information not available 12/20/2022 Do You Use Protection During Sex? Always Information not available 11/02/2021 Do You Use Your Seat Belt Or Car Seat Routinely? Yes Information not available 11/02/2021 Do You Have Smoke And Carbon Monoxide Detectors In Your Home? Yes Information not available 11/02/2021 How Much Tobacco Do You Smoke? No Information not available 11/02/2021 Do You Feel Stressed (tense, Restless, Nervous, Or Anxious, Or Unable To Sleep At Night)? [id number] Information not available 11/02/2021 Do You Use Any Illicit Or Recreational Drugs? No [email or web address] Information not available 11/22/2020 Do You Use Sunscreen Routinely? Yes Information not available 11/02/2021 Has Tobacco Cessation Counseling Been Provided? No Information not available 12/20/2022 Have You Used IV Drugs? No Information not available 11/02/2021 Sex: Unknown Functional Status Question Answer Note LastModified by Organizat ion Details LastModified Time Do you have difficulty walking or climbing stairs? No Information not available 12/20/2022 Are you able to walk? YESWOREST Information not available 11/02/2021 Are you able to care for yourself? Yes Information not available 12/20/2022 Do you have difficulty dressing or bathing? No Information not available 12/20/2022 What is your exercise level? Occasional [email or web address] Information not available 11/22/2020 Mental Status None recorded. Family History Relationship Description Onset Age of this Age Resolved Age Notes LastModified by Organization Details LastModified Time Father Asthma [email or web address] Not available 11/22/2020 22:53:07 Father History of emphysema [email or web address] Not available 2023 09:47:19 Medical History Condition Response Allergies (Food, seasonal, environmental ) N Other Y Drug/Latex Allergies/Reactions N Blood Transfusion N Breast Cancer N Dermatologic Disorders N Lung Disease N Defects or Inherited Disease N Breast Problem N Gestational Diabetes N Hematologic disorders N Anesthesia Complications N History of STI Y Deep Vein Thrombosis N Polycystic ovary syndrome N Anxiety Disorder N Autoimmune disease N Arthritis N Polyps N Infertility N Acid Reflux (GERD) N History of abnormal pap Y Cancer N Varicosities N Stroke N Neurologic/Epilepsy N Endometriosis N High Cholesterol Y Fibromyalgia N Headaches N Kidney Disease N Heart Problems N Thyroid Problems Y Kidney or Bladder Problems N GI Problems N Eating Disorder N Anemia N Art (IVF or FET) N Psychiatric Illness N Ovarian Cancer N Diabetes N Pulmonary (TB, Asthma) N Hepatitis/Liver Disease N Eczema N Urinary Tract Infection N Abuse/Domestic Violence N Asthma N Trauma/Violence N Depression/ depression N Heart Disease N Pre-Eclampsia N Hypertension N Osteoporosis N Thrombophilias N Gynecological History Statement/Question Response Abnormal Pap N Date of Last Mammogram 03/07/2024 Date of LMP On BCP's at Conception? N N STIs/STDs Y HPV Vaccine N Colposcopy Current Control Method Menopause If Post Menopausal, Age at Menopause 49 Date of Last Colonoscopy Sexually Active? N Menses Monthly N Date of DEXA bone scan 02/16/2022 Age of first menstrual cycle 13 Date of Last Pap Smear 10/22/2018 Sexual Problems? N LMP Unknown 10/15/2005 Y Obstetrics History GPAL:G 0 P 0 0 0 0 Past Encounters Encounter ID Performer Location Encounter Start Date Encounter Closed Date Diagnosis/Indication Diagnosis SNOMED-CT Code Diagnosis ICD10 Code Diagnosis Note [id number] Kristina Gracia [facility] [address] [address] 11/15/2020 15:06:39 11/19/2020 15:54:53 Menopausal and postmenopausal disorders 057477624 N95.1 We discussed Menopausal Hormone therapy (MHT) for women with intact uterus with the goals of reliving vaso-motor sx's using estrogen/p rogestin therapy (EPT) using lowest doses for shortest duration in women 40-59yo. Contraindi cations include: Hx of DVT or thrombolic events, High cholestero l, Hx of breast cancer, known CHD, active liver disease, unexplaine d vag bleeding, high risk endometria l cancer, TIA. Side effects can include but are not limited to: Irregular vag bleeding,, breast tenderness , nausea, weight changes, libido changes, nausea. Adverse Rxn: Elevated BP migraine w/ visual changes, breast cancer dx, [place]/stroke, DVT/PE, Endometria l cancer. Please contact office with any new or worsening side effects or adverse reactions. Or if a medical emergency please go to nearest ED/[facility] care for further evaluation . She has been on these medication s since menopause. She has attempted to wean off and experienci ng horrible climacteri c sx's and mood disturbanc es. Her health history is very limited and no issues that would keep her from continuing this therapy was disclosed today. We agreed to continue & RF's sent. Time spent in visit is a total of 15 mins with at least 50% of visit consisting of counseling and review of plan of care. Additional precaution paz measures were taken to minimize potential exposure to the Covid-19 virus during this patient s visit, including available hand hand blocker upon arrive, temperatur e check and being asked a series of screening questions. All staff wore face coverings during this encounter, as well as provided additional cleaning and sanitizing of all surfaces, including countertop s, pens, chairs, door handles, light switches, etc, prior to and following the patient s visit. [id number] BRITNEY Givens-[facility] [address] [address] 11/02/2021 12:34:56 11/02/2021 13:52:03 Gynecologic examination 96093117 Z01.419 Take Calcium with Vitamin D 12-1500mg daily. Do monthly self breast exams. It is advised to get annual flu shot in the fall and she could obtain at [facility] or [facility] care clinic. If you haven't received the Tdap vaccine in the last 10 years you should obtain one as well. Have mammogram yearly, bone density every 2-3 years and colonoscop y every 5-10 years depending on findings and history. Engage in daily exercise of low impact aerobic exercise 45-60 minutes 4-5 times weekly. Avoid tobacco and illicit drugs as well as using moderation with alcohol intake less than 1-2 8 oz beverages daily. This lifestyle behavior pattern will lead to less health conditions and longer life span. If BMI greater than 25 weight watchers or dietary consult advised. Questions have been answered. Patient appears to understand instructio ns, but if you have any further questions call or respond to this email Mammo orderedCol on-PCP managedDex a-orderedG enetic screen discussedN o issues or concerns Screening mammography 24 [id number] Z12.31 Postmenopausal state [id number] Z78.0 Hormone re placement therapy [id number] Z79.890 Her third attempt to wean off HRT was again unsuccessf ul.Disrupt s her mood/hot flashes/ni ght sweats--re gardless of slow weaning schedule previously given to try. We again reviewed R/B's etc of this therapy which she chooses to consent to accepting. RF sent x 1yr Hx reviewed & no new health conditions or illnesses changed. [id number] Kristina Gracia , SAMINA-[facility] [address] [address] 12/20/2022 10:13:18 12/20/2022 10:42:38 Gynecologic examination [id number] Z01.419 Take Calcium with Vitamin D 12-1500mg daily. Do monthly self breast exams. It is advised to get annual flu shot in the fall and she could obtain at [facility] or [facility] take care clinic. If you haven't received the Tdap vaccine in the last 10 years you should obtain one as well. Have mammogram yearly, bone density every 2-3 years and colonoscop y every 5-10 years depending on findings and history. Engage in daily exercise of low impact aerobic exercise 45-60 minutes 4-5 times weekly. Avoid tobacco and illicit drugs as well as using moderation with alcohol intake less than 1-2 8 oz beverages daily. This lifestyle behavior pattern will lead to less health conditions and longer life span. If BMI greater than 25 weight watchers or dietary consult advised. Questions have been answered. Patient appears to understand instructio ns, but if you have any further questions call or respond to this email Mammo orderedCol on-PCP managedDex a-due 2023 Have PCP manage.Gen etic screen discussedN o issues or concernsLa bs PCP Screening mammography 24 [id number] Z12.31 Hormone re placement therapy [id number] Z79.890 Counseled on the following: Females >10yrs past menopause (& age 60yo+) are generally not good candidates for starting (1st use) systemic HT. Decisions to continue systemic HT > a decade past menopause (or past age 60yo) requires balancing R/B's; & individual ized needs. Non-hormon al options may be more appropriat e for females >10yrs past menopause. Accepts risks for continuing this therapy.Sh e voices she tries every year to wean off slowly & every time hot flashes and night sweats come back terribly affecting her quality of life. RF sent x [phone] BRITNEY Gore [facility] [address] [address] 05/21/2024 13:52:55 05/21/2024 15:07:53 Gynecologic examination [id number] Z01.419 WWEmammogr am UTDcolon cancer screening UTDdexa UTDroutine labs UTD / PCP Do monthly self breast exams. It is advised to get annual flu shot in the fall and she could obtain at local pharmacy. If you haven't received the Tdap vaccine in the last 10 years you should obtain one as well. Have mammogram yearly, bone density every 2-3 years and stay up to date on colon cancer screening. Engage in regular exercise. Avoid tobacco and illicit drugs. This lifestyle behavior pattern will lead to less health conditions and longer life span. If BMI greater than 25 dietary consult advised. Questions have been answered. Hormone re placement therapy [id number] Z79.890 Counseled on the following: Females >10yrs past menopause (& age 60yo+) are generally not good candidates for starting (1st use) systemic HT. Decisions to continue systemic HT > a decade past menopause (or past age 60yo) requires balancing R/B's; & individual ized needs. Non-hormon al options may be more appropriat e for females >10yrs past menopause. Accepts risks for continuing this therapy. She voices she tries every year to wean off slowly & every time hot flashes and night sweats come back terribly affecting her quality of life. we agreed to switch to transderma l estradiol d/t medical hx, continue daily proverar/b /a reviewed in-depth, med check in 3 months BRITNEY Gore [facility] [address] [address] 09/03/2024 09:47:11 09/03/2024 11:08:47 Menopausal symptom [id number] N95.1 Counseled on the following: Females >10yrs past menopause (& age 60yo+) are generally not good candidates for starting (1st use) systemic HT. Decisions to continue systemic HT > a decade past menopause (or past age 60yo) requires balancing R/B's; & individual ized needs. Non-hormon al options may be more appropriat e for females >10yrs past menopause. Accepts risks for continuing this therapy.Sh e voices she tries every year to wean off slowly & every time hot flashes and night sweats come back terribly affecting her quality of life. refills sent, pt aware of r/b Screening for malignant neoplasm of breast [id number] Z12.39 Screening for osteoporosis [id number] Z13.820 Gynecologi c examination [id number] Z01.419 mammogram order givendexa order givencolon oscopy UTDroutine labs UTD/PCP Do monthly self breast exams.It is advised to get annual flu shot in the fall and she could obtain at local pharmacy. If you haven't received the Tdap vaccine in the last 10 years you should obtain one as well.Have mammogram yearly, bone density every 2-3 years and stay up to date on colon cancer screening. Engage in regular exercise. Avoid tobacco and illicit drugs. This lifestyle behavior pattern will lead to less health conditions and longer life span. If BMI greater than 25 dietary consult advised.Qu estions have been answered. Hormone re placement therapy [id number] Z79.890 Health Concerns Section Related Observation LastModified by Organization Jose Alfredo ls LastModified Time None Recorded Concern Status LastModified by Organization Details LastModified Time None Recorded Advance Directives Directive N: Payers Encounter Date Sequence Insurance Name Policy Number Policy Farmer Covered Member ID Farmer Member ID Guarantor Name 11/15/2020 1 [facility] (MEDICARE REPLACEMENT/ ADVANTAGE - PPO) [id number] Chana Alis [id number] Carlos Alberto Noble Alis 11/02/2021 1 [facility] (MEDICARE REPLACEMENT/ ADVANTAGE - PPO) [id number] Chana Alis [id number] Carlos Alberto Snell 12/20/2022 1 [employer] (MEDICARE REPLACEMENT PPO) [id number] Chana Noble Alis [id number] Carlos Alberto Trammelledwin 05/21/2024 1 [employer] (MEDICARE REPLACEMENT PPO) [id number] Chana Noble Alis [id number] Carlos Alberto Noble Alis 09/03/2024 1 [employer] (MEDICARE REPLACEMENT PPO) [id number] Chana Bushjudie [id number] Carlos Alberto Trammelljudie Notes Date Note Type Note Provider Name and Address Organization Details Recorded Time 11/15/2020 text/html Patient is here today for a 1yr medicaton check of HRT. She voices goals of therapy have been met with use of this therapy. She denies neg side effects. She is eating, drinking, sleeping well; moods are stable & periods are well regulated. Wishes to continue this method of therapy. Kristina Gracia, BRITNEY- [address], [place], [address], [facility] 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 gina bypatient.Menopausal Symptoms:no menopausal symptoms; normal vaginal lubrication Vaginal Bleeding:history of menopause having occurred; no history of post menopausal bleeding Urinary Symptoms:no hematuria; no incontinence; no nocturia; no urinary frequency Vulva:no genital lesion; no vulvar atrophy Vagina:normal vaginal discharge; no vaginal atrophy Breast:no breast lump; no nipple discharge; no breast pain Sexual Complaints:no sexual complaints Psychological Symptoms:no depression; no anxiety Preventive Measures:encourage regular mammograms starting age 40; encourage self breast examination; encourage regular exercise; encourage no tobacco use; mammogram performed within the past year; needs to schedule mammogram; history of recent colonoscopy; needs to schedule bone density [facility] [address], [place], [address], [facility] 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 gina bypatient.Menopausal Symptoms:no menopausal symptoms; normal vaginal lubrication Vaginal Bleeding:history of menopause having occurred; no history of post menopausal bleeding Urinary Symptoms:no hematuria; no incontinence; no nocturia; no urinary frequency Vulva:no genital lesion; no vulvar atrophy Vagina:normal vaginal discharge; no vaginal atrophy Breast:no breast lump; no nipple discharge; no breast pain Sexual Complaints:no sexual complaints Psychological Symptoms:no depression; no anxiety Preventive Measures:encourage regular mammograms starting age 40; encourage self breast examination; encourage regular exercise; encourage no tobacco use; needs to schedule mammogram; history of recent colonoscopy [facility] [address], [place], [address], [facility] 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 gina bypatient.Menopausal Symptoms:no menopausal symptoms; normal vaginal lubrication Vaginal Bleeding:history of menopause having occurred; no history of post menopausal bleeding Urinary Symptoms:no hematuria; no incontinence; no nocturia; no urinary frequency Vulva:no genital lesion; no vulvar atrophy Vagina:normal vaginal discharge; no vaginal atrophy Breast:no breast lump; no nipple discharge; no breast pain Sexual Complaints:no sexual complaints Psychological Symptoms:no depression; no anxiety Preventive Measures:encourage regular mammograms starting age 40; encourage self breast examination; encourage regular exerciseNotes:74yo WWE G0no h/o abnormal paps per ptlast pap 2018 - normal mammogram exa 2021 - [facility] 2022 on oral estradiol and provera daily for hot flashes/night sweats since age 49. Has tried and failed multiple attempts to wean down/off of HRT. Has tried non-hormonal therapies for hot flashes with no success. Desires to continue on this therapy. BRITNEY Gore [address], [place], [address], [facility] 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 gina bypatient.Menopausal Symptoms:no menopausal symptoms; normal vaginal lubrication Vaginal Bleeding:history of menopause having occurred; no history of post menopausal bleeding Urinary Symptoms:no hematuria; no incontinence; no nocturia; no urinary frequency Vulva:no genital lesion; no vulvar atrophy Vagina:normal vaginal discharge; no vaginal atrophy Breast:no breast lump; no nipple discharge; no breast pain Sexual Complaints:no sexual complaints Psychological Symptoms:no depression; no anxiety Preventive Measures:encourage regular mammograms starting age 40; encourage self breast examination; encourage regular exercise; encourage no tobacco useNotes:74yopresent s for HRT med checkdoing well, no issues - wants to continue on HRTno h/o abnormal papslast pap 2019 - normalmammogram exa - duecolonoscopy BRITNEY Castillo [address], [place], [address], [facility] 09/03/2024 11:05:11 OBGyn Episode No OBEpisode recorded.
--- OUTSIDE RECORDS SUMMARY | 2024-12-22 09:15 | XMS_ITS | Continuity of Care Document ---
Author Organization [facility] Address [address] [place] [address] Phone Care Team Providers Care Dragline Engineer Name Role Phone Yusuf OD, Mekhi Unavailable Unavailable Procedures Procedure Date Office/outpatient Visit, Est Eye Exam Established Pt Eye Exam, New Patient Advance Directives Directive Yes / No Effective Date File Name No Information Encounters Encounter Description Practice Location Reason(s) For Visit Diagnoses Date Provider Providers Copied on Encounter Office/outpat ient Visit, Est [facility], [address] [place] [address] [address], [place], [place], [id number], tel:[phone] [facility] No Information Nov- 4-201 0 Yusuf OD Mekhi. [address] , [address], [place], [place], [facility], . tel:[phone] [facility], [id number] [place] [address] [address], [place], [place], [id number], [place] tel:[phone] [facility] No Information Dec-0 3-200 9 Yusuf OD Mekhi. [address] , [address], [place], [place], [facility], . tel:[phone] [facility], [address], [place], [place], [address], tel:[phone] [facility] No Information 8-200 9 Krishnaskevin Levy. [address], [address], [place]. tel:[phone] Family History Family Member Type Diagnosis Age At Onset No Information Payers Payer name Insurance type Covered republican ID Authoriza tion(s) No Information Social History Type Description Quantity Date Captured Comments Sex Female Smoking Status No Information Chief Complaint And Reason For Visit No Information Reason For Referral Reason For Referral No Information History Of Present Illness Encounter Date Complaint History Of Prese nt Illness No Information Functional Status Date Functional Assessmen t No Information Instructions Date Instruction Additional Infor mation No Information Assessments Type Assessment Date No Information Patient Care Teams Name Effective Dates (start - stop) Status Members No Information
[2024-12-22 09:37] LABS: Hemoglobin A1C 5.8 % (<5.7)
[2024-12-22 09:51] LABS: Alanine Aminotransferase 23 U/L (14-59); Albumin Level 3.8 g/dL (3.4-5.0); Alkaline Phosphatase 67 U/L (46-116); Anion Gap 8 mmol/L (4-12); Aspartate Amino Transferase 16 U/L (15-37); Bilirubin,Total 0.5 mg/dL (0.00-1.00); Blood Urea Nitrogen 20 mg/dL (7-18); Calcium 8.7 mg/dL (8.5-10.1); Carbon Dioxide 29 mmol/L (21-32); Chloride 104 mmol/L (98-108); Cholesterol 198 mg/dL (0-200); Creatine Kinase 67 U/L (26-192); Estimated Glomerular Filt Rate > 60; Free T4 Free Thyroxine 1.44 ng/dL (0.76-1.46); Glucose 95 mg/dL (70-99); HDL Direct 80 mg/dL (40-60); LDL Cholesterol Calculated 106 mg/dL (<130); Osmolality Calculated 294 mOsm/kg (285-295); Potassium 4.4 mmol/L (3.5-5.1); Sodium 141 mmol/L (136-145); Total Protein 7.4 g/dL (6.4-8.2); Triglycerides 59 mg/dL (0-150)
[2024-12-22 10:06] LABS: Rheumatoid Factor Screen Negative (Negative)
[2024-12-22 10:14] LABS: Erythrocyte Sedimentation Rate 25 mm/hr (0-20)
[2024-12-24 17:03] LABS: Anti Cyclic Citrullinated Pept <16 UNITS
== END 2024-12-22 08:39 | disposition home or self-care (01) ==
LOC: CHSLAB 08:40
PROVIDERS: PCP Family Medicine; Visit Provider Student in an Organized Health Care Education/Training Program
DX: M25.50 Pain in unspecified joint (principal); E03.9 Hypothyroidism, unspecified; R94.6 Abnormal results of thyroid function studies; R73.03 Prediabetes; E78.5 Hyperlipidemia, unspecified; R53.83 Other fatigue
CPT/HCPCS: 36415; 80053; 80061; 82550; 83036; 84439; 84443; 85025; 85652; 86038; 86039; 86200; 86430

== ENCOUNTER 2025-02-10 09:22 | Day surgery (SDC) | payer MEDICARE, SELFPAY ==
--- NOTE | ~2025-02-10 | XR_ITS ---
EXAMINATION: XR fluoroscopy no charge DATE: 02/10/2025 10:05 CDT INDICATION: DIAG/PROG KELLEY L3,L4,L5 MEDIAL BRANCH/DORSAL RAMUS NERVE BLK . TECHNIQUE: 11 fluoroscopic images of the lumbar spine were obtained during diagnostic/prognostic bila teral L3, L4, L5 medial branch/dorsal ramus nerve block, performed by Manuel Cyr MD. I was not present during the procedure. Fluoroscopy exposure time was 57.9 seconds. Air Kerma 7.99 mGy. COMPARISON: None FINDINGS/IMPRESSION: Fluoroscopic documentation of diagnostic/prognostic bilateral L3, L4, L5 medial branch/dorsal ramus n erve block. Please refer to the operative note for complete procedural details . Reviewed, dictated and finalized at location K.
--- NOTE | 2025-02-10 09:20 | PM.HPGS ---
History of Present Illness History of Present Illness Consent: Risks, benefits, and alternatives have been discussed and questions answered. Patient agrees to proceed with procedure. Chief complaint: Lumbosacral spondylosis, chronic low back pain Narrative: Chana Snell is a 75 year old female with chronic, recalcitrant and disabling bilateral lumbosacral back pain secondary to degenerative spondylosis with failure to respond to aggressive conservative measures including PT, oral and topical analgesics, opioid and nonopioid analgesics, rest, time and activity/behavioral modification over the past 1-2 years who presents for diagnostic/prognostic medial branch blocks of the bilateral L3, L4, L5 medial branches/dorsal ramus(#1) addressing the ipsilateral L4-5, L5-S1 facet joints under fluoroscopic guidance and with contrast control. Review of Systems Review of Systems: All systems reviewed & are unremarkable except as noted in HPI and below PMFSH Past Medical History Medical History Closed fracture of left distal fibula Hypothyroidism determined by thyroid function test Family History Family History Sibling Family history of cardiovascular disease Social History Social History Smoking status: Never smoker Second hand tobacco smoke exposure: No Alcohol intake: current Alcohol use details: socially; seldom Substance use: never Substance use type: does not use Lack of Transportation: No Lack of Food: Never True Current Housing: I Have Housing Concerned About Future Housing: No Difficulty Paying Gas/Electric Bills: No Difficulty Paying for Meds: No Currently Unemployed: No Education: Trade/Vocational Certificate Difficulty w/ Childcare or Family Care: No Living arrangements: with family Occupation/Education: retired Gender identity (if verbalized by the patient): Female Spiritual care concerns: No Agree to blood products: Yes Meds Home Medications and Allergies Home Medications ?Medication ?Instructions ?Recorded ?Confirmed ?Type Saccharomyces boulardii 250 mg 5,000 mmu cells PO DAILY 04/26/22 01/21/25 History capsule (Daily Probiotic (S. boulardii)) calcium carbonate (Calcium 500) 500 mg PO DAILY 04/26/22 01/21/25 History glucosamine-chondroitin 750 mg-600 1 tablet PO DIRECTED 04/26/22 01/21/25 History mg tablet loratadine 10 mg tablet 10 mg PO DAILY 04/26/22 01/21/25 History magnesium 250 mg tablet 250 mg PO DAILY 04/26/22 01/21/25 History melatonin 1 mg tablet 1 mg PO QHS 04/26/22 01/21/25 History multivitamin 1 tablet PO DAILY 04/26/22 01/21/25 History omega-3 fatty acids-fish oil 360 1 cap PO DAILY 04/26/22 01/21/25 History mg-1,200 mg capsule (Fish Oil) simvastatin 20 mg tablet 20 mg PO DAILY #90 tabs 05/17/24 01/21/25 Rx levothyroxine 100 mcg tablet 100 mcg PO DAILY #90 tabs 08/12/24 01/21/25 Rx sertraline 50 mg tablet See Rx Instructions .Route 11/26/24 01/21/25 Rx .COMPLEX #90 tabs trazodone 50 mg tablet 25 mg (1/2 x 50 mg) PO QHS PRN 12/02/24 01/21/25 Rx insomnia #45 tabs celecoxib 200 mg capsule (Celebrex) 200 mg PO DAILY 30 days #30 caps 12/29/24 01/21/25 Rx estradiol 0.025 mg/24 hr weekly 1 patch transdermal WEEKLY 01/21/25 01/21/25 History transdermal patch Allergies Allergy/AdvReac Type Severity Reaction Status Date / Time tetracycline Allergy Unknown Skin Verified 01/21/25 08:48 irritation Exam Narrative: The patient's physical exam is essentially unchanged from prior examination on 12/29/2024. Specifically, patient demonstrates normal lung capacity, tidal volume and respiratory rate without wheezes, crackles, rales or rubs. Heart rate and rhythm are regular without murmurs, gallops or rubs. No JVD. Pulses 2+ globally without increasing peripheral edema. AAOx3 with no evidence of confusion, intoxication or altered mental state, NC/AT without acute distress or altered consciousness. Speech, cognition, mood, insight and judgment at baseline and within normal limits. Assessment and Plan Assessment and plan (1) Lumbosacral spondylosis without myelopathy: Code(s): M47.817 - Spondylosis without myelopathy or radiculopathy, lumbosacral region Status: Acute Assessment and Plan: Proceed as planned with diagnostic/prognostic medial branch blocks of the bilateral L3, L4, L5 medial branches/dorsal ramus(#1) addressing the ipsilateral L4-5, L5-S1 facet joints under fluoroscopic guidance and with contrast control. (2) Chronic low back pain: Code(s): M54.50 - Low back pain, unspecified; G89.29 - Other chronic pain Status: Acute
--- NOTE | 2025-02-10 09:22 | WPDHPUPDATE1 ---
History and Physical Update Update Date/Time: 02/10/25 09:22 History and Physical has been reviewed, including an updated exam of the patient. There are NO changes in the patient's condition. Risks, benefits, and alternatives have been discussed and questions answered. Patient agrees to proceed with procedure.
--- NOTE | 2025-02-10 09:22 | W.PM.PROC2 ---
Procedure Note - Detailed Date of Procedure 02/10/25 Pre-op Diagnosis Lumbosacral spondylosis, chronic low back pain Post-op Diagnosis Same Procedure Performed Diagnostic bilateral Lumbar Medial Branch/Dorsal Ramus Blocks at L3, L4, L5 Treating the bilateral L4-5, L5-S1 Facet Joints Under Fluoroscopic Guidance and with Contrast Control. (4 levels blocked). Surgeon Manuel Cyr MD Advisor Advocate Angel Co Founder None. Anesthesia Local Description of Procedure INFORMED CONSENT: Risks, benefits and alternatives to the procedure were discussed in detail with the patient who expressed explicit understanding and consent to proceed. Patient was informed verbally and in written form regarding the risks associated with the procedure including the low risk of serious infection, bleeding/bruising, allergic reaction, nerve or organ injury, paralysis, procedural site pain or discomfort, worsening pain and/or mobility, failure to treat and/or disfigurement. The patient expressed explicit understanding and consent to proceed. All materials required for the procedure were available prior to procedure start. Site and side were marked prior to procedure and confirmed in the presence of the patient. PROCEDURE IN DETAIL: The patient was brought to the procedural suite and placed in the prone position. Patient was made comfortable with use of pillows under the head/chest, hips and ankles. Skin overlying the injection site on the affected side(s) was prepared broadly with ChloraPrep applicator and draped in a sterile manner. Aseptic technique was used throughout. The endplates of the vertebral bodies at the site(s) of interest were aligned in the AP view. Ipsilateral oblique angulation was utilized to optimize visualization of the intersection between the superior articulating process and transverse process at each target site. Local anesthesia was established by infiltration with approximately 5 mL of 1% lidocaine via a 1-1/2 inch 27-gauge needle. A 25-gauge 5.0 inch Quincke spinal needle was advanced until the needle tip contacted periosteum at the target site, right L3. Lateral view was utilized to confirm the appropriate placement of the needle tip just anterior to the facet line and superior to the pedicle. In the Lateral view, 0.25 mL of Omnipaque 300 contrast medium was injected after negative aspiration for CSF, blood or other bodily fluid, showing appropriate extra-articular spread of contrast without evidence of intravascular, foraminal or intrathecal placement. A 0.5 mL solution of 0.5% PF bupivacaine was injected after negative repeat aspiration. Appropriate spread of the injectate was confirmed with washout of previously injected contrast. No parasthesias were elicited. Needle was removed completely intact without difficulty. The same exact procedure was repeated for all remaining levels on the ipsilateral side, right L4, L5 medial branches/dorsal ramus, modified as necessary to accommodate for the new target location with identical findings and results and no evidence of complication. The same exact procedure was repeated for all remaining levels on the contralateral side, left L3, L4, L5 medial branches/dorsal ramus, modified as necessary to accommodate for the new target location with identical findings and results and no evidence of complication. Images were saved and documented in the patient chart. Patient's skin was cleaned and sterile bandage applied. The patient tolerated the procedure well. The patient was transported to the recovery area in stable condition where they were observed for an appropriate amount of time prior to discharge, without evidence of complication. Patient was instructed on the appropriate completion of a pain diary over the next 12-24 hours. The patient was instructed to avoid excessive activity for the next 48 hours, including climbing and frequent use of stairs. Showers only for 48 hours. They were instructed not to drive or operate heavy machinery for 24 hours. They are to monitor for severe headaches, fevers, chills, night sweats, erythema/swelling at the site or any other signs of infection, bleeding/bruising, bowel or bladder changes as well as new pain, weakness or numbness in the upper or lower extremity. Should they notice these changes, they are instructed to call our office immediately or report directly to the nearest Emergency Department if no answer or if after posted office hours. COMPLICATIONS: None COMMENTS: None CONTRAST WASTED: 28.5mL Omnipaque 300. Complications No immediate complications Condition Stable Disposition Same day [facility] Billing Surgery - Charge Forward: Surgery Billing
[2025-02-10 09:58] VITALS: BP 110/78; PULSE 77; RESP 18; TEMP 37.4; O2SAT 99
[2025-02-10 10:01] VITALS: BMI 22.6
[2025-02-10 10:10] VITALS: BP 122/66; PULSE 74; RESP 21; O2SAT 97
[2025-02-10 10:21] VITALS: BP 117/67; PULSE 75; RESP 21; O2SAT 97
[2025-02-10] MEDS: BUPivacaine HCL 0.5% 10 ML AMP INFILTRATE (10:23)
[2025-02-10] MEDS: LIDOCAINE 1% PF INJ 5 ML VIAL INFILTRATE (10:24)
[2025-02-10 10:30] VITALS: BP 114/68; PULSE 76; RESP 14; O2SAT 100
--- OUTSIDE RECORDS SUMMARY | 2025-02-10 10:35 | XMS_ITS | Continuity of Care Document ---
Author Organization [facility] Address [address] [place] [address] Phone Care Team Providers Care Film Processing Utility Worker Name Role Phone Yusuf OD, Mekhi Unavailable Unavailable Procedures Procedure Date Office/outpatient Visit, Est Eye Exam Established Pt Eye Exam, New Patient Advance Directives Directive Yes / No Effective Date File Name No Information Encounters Encounter Description Practice Location Reason(s) For Visit Diagnoses Date Provider Providers Copied on Encounter Office/outpat ient Visit, Est [facility], [address] [place] [address] [address], [place], [place], [id number], tel:[phone] [facility] No Information Nov- 4-201 0 Yusuf OD Mekhi. [address], [place], [place], [facility], . tel:[phone] [facility], [address] [place] [address] [address], [place], [place], [id number], [place] tel:[phone] [facility] No Information 0 3-200 9 Yusuf OD Mekhi. [address] , [address], [place], [place], [facility], . tel:[phone] [facility], [address], [place], [place], [id number], tel:[phone] [facility] No Information 8-200 9 Krishnaskevin Levy. [address], [address], [place]. tel:[phone] Family History Family Member Type Diagnosis Age At Onset No Information Payers Payer name Insurance type Covered green party ID Authoriza tion(s) No Information Social History [...]
--- OUTSIDE RECORDS SUMMARY | 2025-02-10 10:35 | XMS_ITS | Data Portability ---
Author Organization [facility] Address [address] [place] [address] Care Team Providers Care Automation Qa Analyst Name Role Phone NIKKO TINOCO Primary Care Provider Assessment Encounter Date Assessment Date Assessment LastModified [...] + vertebral fracture assessmen t 2023 024 [facility], [address], [address] [facility], [place], [address], 12/02/2024 04:06:59 MAMMO, screening , digital, bilateral 2023 024 [facility], [address], [address], [place], [address], 09/10/2024 04:03:54 MAMMO, screening , bilateral 2022 023 [facility], [address], [address], [place], [address], 09/23/2023 05:01:16 MAMMO, screening , bilateral 2021 022 [facility], [address], [address], [place], [address], 12/09/2021 09:46:51 DEXA, axial skeleton + vertebral fracture assessmen t 2021 022 [facility], [address], [address], [place], [address], 02/23/2022 11:53:05 Medication Orders estradiol 0.025 mg/24 hr weekly transderm al patch 2023 024 [facility] [address] [facility], [address] [place], [address], 09/03/2024 11:04:40 medroxypr ogesteron e 5 mg tablet 2023 024 [facility] [address] In [facility], [address] [place], [address], 09/03/2024 11:04:26 estradiol 0.025 mg/24 hr weekly transderm al patch 2023 024 [facility] [address] In [facility], [address] [place], [address], 05/21/2024 14:26:41 medroxypr ogesteron e 5 mg tablet 2023 024 [facility] [address] In [facility], [address] [place], [address], 05/21/2024 14:27:36 estradiol 1 mg tablet 2022 023 [facility] [address] In [facility], [facility] [place], [address], 05/21/2024 15:02:24 Provera 5 mg tablet 2022 023 [facility] [address] [address] [place] [place], [address], 12/20/2022 10:30:43 estradiol 1 mg tablet 2021 022 [facility] [address] In [facility], [address] [place] [address], [address], 05/21/2024 15:02:24 Provera 5 mg tablet 2021 022 [facility] [address] [address] [place] [address] [facility], [place], [address], 11/02/2021 13:01:22 estradiol 1 mg tablet 2020 021 [facility] [address] In [facility], [facility] [place], [address], 05/21/2024 15:02:24 Provera 5 mg tablet 2020 021 [facility] [address], [place], [address], 11/15/2020 15:47:05 Patient TargetsNo targets recorded. Patient InstructionsNo instructions recorded. Reason for Referral None Reported. Results Created Date Observation Date Name Description Value Unit Range Abnormal Flag Note LastModifiedBy Organization Detail LastModifiedTime 11/11/19 21 11/11/2020 bautista VINCENT bilat eral No observ ation record ed. [place] [address], [place], [address], 11/12/2020 11:51:43 12/09/19 22 MAMMO , scree josé miguel, bilat eral No observ ation record ed. [facility] [address], [place], [address], 12/14/2021 14:14:34 02/24/20 22 DEXA, axial skele ton + verte bral fract ure asses sment No observ ation record ed. [address] [place] [address] [address], [place], [address], 03/06/2022 15:56:10 Result Notes None recorded. Problems Name Problem SNOMED Code Status Onset Date Resolution Date Notes Provider Name and Address Organization Details Recorded Time Screenin g for malignan t neoplasm of rectum Completed 201603/06/2022 Encounter for screening for malignant neoplasm of rectum;Pr actice ID: 0001 Nika lewis [facility] 2 15:58:[address] Concept Completed 201703/06/2022 Encntr for general adult medical exam w/o abnormal findings; Practice ID: 0001 Nika lewis [facility] 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 2 15:58:32 Menopaus e present [id number] Completed 201903/06/2022 Menopausa l and female climacter ic states;Pr actice ID: 0001 Nika lewis [facility] 2 15:58:32 Adult health examinat ion Completed 201303/06/2022 Routine general medical examinati on at a health care facility; Practice ID: 0001 Nika lewis [facility] 2 15:58:31 Speciali zed medical examinat ion Completed 201303/06/2022 Routine gynecolog ical examinati on;Practi ce ID: 0001 [facility] 2 15:58:32 Screenin g for malignan t neoplasm of cervix Completed 201303/06/2022 Pap Smear;Pra ctice ID: 0001 [facility] [facility] 2 15:58:31 Human papillom a virus infectio n [id number] Completed 201403/06/2022 HUMAN PAPILLOMA VIRUS IN CONDITION S CLASSIFIE D ELSEWHERE AND OF UNSPECIFI ED SITE;Prac kayla ID: 0001 [facility] [facility] 2 15:58:31 Atypical glandula r cells on cervical Papanico laou smear [id number] Completed 201403/06/2022 Pap Abnormal Endocerv Endometri al Saeed;Prac kayla ID: 0001 Nika Erickson [facility] 2 15:58:32 Conducti on disorder of the heart [id number] Completed 201303/06/2022 Bradycard ia;Record ed Elsewhere : No Locati on: [facility] So urce: EHR Chron ic: N Practic e ID: 0001 Bill able Time: 03:23:25 PM [facility] 2 15:58:32 Microsco pic hematuri a [id number] Completed 201103/06/2022 HEMATURIA MICROSCOP IC;Practi ce ID: 0001 Nika Erickson [facility] 2 15:58:31 Mammogra phy abnormal [id number] Completed 201303/06/2022 Unspecifi ed abnormal mammogram ;Recorded Elsewhere : No Locati on: [facility] So urce: EHR Chron ic: N Practic e ID: 0001 Bill able Time: 08:46:20 AM Nika lewis [facility] 2 15:58:31 Evaluati on finding [id number] Completed 201803/06/2022 Oth abn and inconclus kelvin findings on dx imaging of breast;Re corded Elsewhere : No Locati on: [facility] So urce: EHR Chron ic: N Practic e ID: 0001 Bill able Time: 09:16:36 AM Nika lewis [facility] 2 15:58:31 Abnormal cervical Papanico laou smear [id number] Completed 201303/06/2022 Other abnormal papanicol aou smear of cervix and cervical HPV;Recor ded Elsewhere : No Locati on: [facility] So urce: EHR Chron ic: N Practic e ID: 0001 Bill able Time: 09:00:00 AM Nika lewis [facility] 2 15:58:32 Problem Notes None recorded. Procedures Surgical History Date Name Laterality Status Provider Name and Address Organization Details Recorded Time 03/07/20 24 Date of Last Mammogram completed Dagmar Ybarra [facility] 09/03/2024 10:00:49 10/22/19 19 Date of Last Pap Smear completed Nika Scott [facility] 12/20/2022 10:23:30 10/15/19 07 Hysteroscopy completed Sherrie Feldman [facility] 11/22/2020 22:55:51 10/15/19 06 completed Sherrie Feldman [facility] 11/22/2020 22:57:25 10/15/19 06 Colonoscopy completed Sherrie Feldman [facility] 11/22/2020 22:54:49 10/15/18 70 Hysteroscopy completed Sherrie Feldman [facility] 11/22/2020 22:56:49 Imaging Results Imaging Date Name Status LastModified by [facility] Details LastModified Time 11/11/2020 MAMMO, screening, bilateral completed [facility] [address], [place], [address], 11/12/2020 11:51:43 12/09/2021 MAMMO, screening, bilateral completed [facility] [address], [place], [address], 12/14/2021 14:14:34 02/23/2022 DEXA, axial skeleton + vertebral fracture assessment completed [address] [facility] [address], [place], [address], 03/06/2022 15:56:10 Procedure Notes None recorded. Medical [...] Prescrib ed Elsewher e: No Locat ion: [facility] odify By: reyna [address] ncounter DateTime : 10/18/19 18 02:30:00 PM Not Available Not Available Not Available Evista 60 mg tablet take 1 tablet by oral route every day 10/17 completed Prescrib ed Elsewher e: No [facility] odify By: cierra tz Encou nter [...] Prescrib ed Elsewher e: Yes Loca tion: [facility] odify By: kamlesh cavazos DateTime : 05/20/20 11 11:44:09 AM Not Available Not Available Not Available simvastat in 20 mg tablet TAKE 1 TABLET BY MOUTH DAILY active Not Available Not Available No t Available magnesium 100 mg capsule active Prescrib ed Elsewher e: Yes Loca [facility]ion: [facility] odify By: kaleigh hayes DateTime : 07/16/20 12 10:45:00 AM Not Available Not Available Not Available Synthroid 75 mcg tablet take 1 tablet (75MCG) by oral route every day 08/21 completed Prescrib ed Elsewher e: No Locat ion: [facility] odify By: rai buck DateTime : 07/22/20 13 12:08:03 PM Not Available Not Available Not Available Synthroid 50 mcg tablet take 1 tablet (50MCG) by ORAL route every day 07/21 completed Prescrib ed Elsewher e: No [facility]at [facility] By: kaleigh hayes DateTime : 03/07/20 [...] Elsewher e: Yes Loca tion: [facility] odify By: reyna buck DateTime : 10/22/19 09:30:00 AM Not Available Not Available Not Available levothyro xine 112 mcg tablet PLEASE SEE ATTACHED FOR DETAILED DIRECTIO NS 09/03 completed Not Available Not Available Not Available Vitamins and Minerals tablet active Prescrib ed Elsewher e: Yes Loca tion: [facility] odify By: kaleigh hayes DateTime : 07/16/20 12 10:45:00 AM Not Available Not Available Not Available Prempro 0.45 mg-1.5 mg tablet take 1 tablet by oral route every day 12/27 completed Prescrib ed Elsewher e: No Locat ion: [facility] odify By: jhcelsa cavazos DateTime : 09/27/20 01:30:00 PM Not Available Not Available Not Available Calcio Inocencio 500 mg tablet 12/20 completed Prescrib ed Elsewher e: Yes Loca tion: [facility] odify By: kaleigh hayes DateTime : 07/16/20 12 10:45:00 AM Not Available Not Available Not Available Fish Oil 100 mg-160 mg-1,000 mg capsule active Prescrib ed Elsewher e: Yes Loca tion: [facility] odify By: kaleigh hayes DateTime : 07/16/20 12 10:45:00 AM Not Available Not Available Not Available glucosami ne-chondr oitin 167 mg-133 mg capsule active Prescrib ed Elsewher e: Yes Loca tion: [facility] odify By: kaleigh hayes DateTime : [...] Updated DateTime 11/02/2021 160.66 cm 25.5 kg/m2 72609.89 g 124 mm[Hg] 82 mm[Hg] Real Concepcionstef [facility] 2 12:48:10 Date Recorded Body weight Systolic blood pressure Diastolic blood pressure Provider Name and Address Organization Details Last Updated DateTime 12/20/2022 69131.93 g 110 mm[Hg] 69 mm[Hg] Nika Tyler [facility] 12/20/2022 10:22:51 Date Recorded Body height Body mass index (BMI) Body weight Systolic blood pressure Diastolic blood pressure Provider Name and Address Organization Details Last Updated DateTime 05/21/2024 160.02 cm 23.6 kg/m2 64582.79 g 104 mm[Hg] 67 mm[Hg] Jaclyn Carson [facility] 4 13:59:18 Date Recorded Body height Body mass index (BMI) Body weight Systolic blood pressure Diastolic blood pressure Provider Name and Address Organization Details Last Updated DateTime 09/03/2024 160.02 cm 22.7 kg/m2 85111.82 g 112 mm[Hg] 71 mm[Hg] Dagmar Ybarra [facility] 10:00:40 Date Recorded Body height Body mass index (BMI) Body weight Provider Name and Address Organization Details Last Updated DateTime 11/15/2020 160.66 cm 24.6 kg/m2 38737.93 g Sherrie Francia [facility] 11/15/2020 15:34:51 Date Recorded Systolic blood pressure Diastolic blood pressure Provider Name and Address Organization Details Last Updated DateTime 11/15/2020 122 mm[Hg] 80 mm[Hg] Kristina Gracia, [facility]- [address], [place], [address], [facility] 11/15/2020 15:47:29 Social History Question Answer Notes LastModified by Organizat ion Details LastModified Time Tobacco Smoking Status Never Smoker Nika lewis, [facility] 12/20/2022 10:23:56 Do You Have An Advance Directive? No Information n ot available 11/02/2021 What Is Your Level Of Alcohol Consumption? Occasional [email or web address] Information not available 11/22/2020 Are You Blind [...] Or The Highest Degree You Have Received? 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 CD4426-3 Information not available 11/02/2021 Do You Use Any Illicit Or Recreational Drugs? No [email or web address] Information not available 11/22/2020 Do You Use Sunscreen Routinely? Yes Information not available 11/02/2021 Has Tobacco Cessation Counseling Been Provided? No [email or web address] Information not available 12/20/2022 Have You Used [...] 12/20/2022 What is your exercise level? Occasional Information not available 11/22/2020 Mental Status None recorded. Family History Relationship Description Onset Age of this Age Resolved Age Notes LastModified by Organization Details LastModified Time Father Asthma [email or web address] Not available 11/22/2020 22:53:07 Father History of emphysema Not available 2023 09:47:19 Medical History Condition Response Allergies (Food, seasonal, environmental ) N Other Y Breast Cancer N Drug/Latex Allergies/Reactions N Blood Transfusion N Dermatologic Disorders N Lung Disease N Defects or Inherited Disease N Breast Problem N Gestational Diabetes N Hematologic disorders N Anesthesia Complications N History of STI Y Deep Vein Thrombosis N Polycystic ovary syndrome N Anxiety Disorder N Autoimmune disease N Arthritis N Infertility N Polyps N Acid Reflux (GERD) N History of abnormal pap Y Cancer N Stroke N Varicosities N Neurologic/Epilepsy N Endometriosis N High Cholesterol Y Headaches N Fibromyalgia N Kidney Disease N Heart Problems N Kidney or Bladder Problems N Thyroid Problems Y GI Problems N Eating Disorder N Anemia [...] SNOMED-CT Code Diagnosis ICD10 Code Diagnosis Note [id number] [facility] [address] [address] 11/15/2020 15:06:39 11/19/2020 15:54:53 Menopausal and postmenopausal disorders [id number] N95.1 We discussed Menopausal Hormone therapy (MHT) [...] migraine w/ visual changes, breast cancer dx, VA/stroke, DVT/PE, Endometria l cancer. 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 All staff wore face coverings during this encounter, as well as provided additional cleaning and sanitizing of all surfaces, including countertop s, pens, chairs, door handles, light switches, etc, prior to and following the patient s visit. [id number] Kristina Gracia , [facility] [address] [address] 11/02/2021 12:34:56 11/02/2021 13:52:03 Gynecologic examination 70383168 Z01.419 Take Calcium with Vitamin D 12-1500mg daily. Do monthly self breast exams. It is advised to get annual flu shot in the fall and she could obtain at [facility] or [facility] care clinic. If you haven't received the [...] o issues or concerns Screening mammography 24 494684 Z12.31 Postmenopausal state 764 12995 Z78.0 Hormone re placement therapy 010938507 Z79.890 Her third attempt to wean off HRT was again unsuccessf ul.Disrupt s her mood/hot flashes/ni ght sweats--re gardless of slow weaning schedule previously given to try. We again reviewed R/B's etc of this therapy which she chooses to consent to accepting. RF sent x 1yr Hx reviewed & no new health conditions or illnesses changed. [id number] Kristina Gracia , [facility] [address] [address] 12/20/2022 10:13:18 12/20/2022 10:42:38 Gynecologic examination 58447836 Z01.419 Take Calcium with Vitamin D 12-1500mg daily. Do monthly self breast exams. It is advised to get annual flu shot in the fall and she could obtain at [facility] or [facility] take care clinic. If you haven't received [...] or concernsLa bs PCP Screening mammography 24 443408 Z12.31 Hormone re placement therapy 574629618 Z79.890 Counseled on the following: Females >10yrs [...] her quality of life. RF sent x [id number] BR[facility]NEY [place] [address] [address] 05/21/2024 13:52:55 05/21/2024 15:07:53 Gynecologic examination 11107472 Z01.419 WWEmammogr am UTDcolon cancer screening UTDdexa [...] have been answered. Hormone re placement therapy 334908921 Z79.890 Counseled on the following: Females >10yrs [...] med check in 3 months BR[facility]NEY [place] [address] [address] 09/03/2024 09:47:11 09/03/2024 11:08:47 Menopausal symptom 22993233 N95.1 Counseled on the following: Females >10yrs [...] r/b Screening for malignant neoplasm of breast 024563183 Z12.39 Screening for osteoporosis 513659049 Z13.820 Gynecologi c examination 69555359 Z01.419 mammogram order givendexa order givencolon oscopy [...] have been answered. Hormone re placement therapy 979186415 Z79.890 Health Concerns Section Related Observation LastModified by Organization Detai ls LastModified Time None Recorded Concern Status LastModified by Organization Details LastModified Time None Recorded Advance Directives Directive N: Payers Encounter Date Sequence Insurance Name Policy Number Policy Farmer Covered Member ID Farmer Member ID Guarantor Name 11/15/[address] [facility] (MEDICARE REPLACEMENT/ ADVANTAGE - PPO) [id number] Chana Trammelledwin [id number] Carlos Alberto Noble Alis 11/02/[address] [facility] (MEDICARE REPLACEMENT/ ADVANTAGE - PPO) [id number] Chana Trammelledwin [id number] Carlos Alberto Snell 12/20/2022 1 [employer] (MEDICARE REPLACEMENT PPO) [id number] Chana Noble Jpjudie [id number] Carlos Alberto Bushjudie 05/21/2024 1 [employer] (MEDICARE REPLACEMENT PPO) [id number] Chana Snell [id number] Carlos Alberto Bushjudie 09/03/2024 1 [employer] (MEDICARE REPLACEMENT PPO) [id number] Chana Snell [id number] Carlos Alberto Snell Notes Date Note Type Note Provider Name [...] therapy. Kristina Gracia, BRITNEY- [address], [place], [address], [facility] 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 Has tried and failed multiple attempts to wean down/off of HRT. Has tried non-hormonal therapies for hot flashes with no success. Desires to continue on this therapy. BRITNEY Gore [address], [place], [address], [facility] 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 09/03/2024 11:05:11 OBGyn Episode No OBEpisode recorded.
== END 2025-02-10 10:45 | disposition home or self-care (01) ==
LOC: ASC 09:42
PROVIDERS: PCP Family Medicine; Visit Provider Anesthesiology Pain Medicine
PROC: (CPT 64493; principal; 2025-02-10 10:45)
DX: M47.817 Spondylosis without myelopathy or radiculopathy, lumbosacral region (principal); G89.29 Other chronic pain
CPT/HCPCS: 64493 ×2; 64494 ×2; 64495 ×2; 99199

== ENCOUNTER 2025-03-18 14:42 | Outpatient (CLI) | payer MEDICARE, SELFPAY ==
--- NOTE | ~2025-03-18 | MM_ITS ---
EXAMINATION: MM screening [facility] BI w glen HISTORY: Screening TECHNIQUE: Craniocaudal and mediolateral oblique 3-D tomosynthesis images were obtained and synthetic 2-D images were generated. CAD analysis was submitted and interpreted. COMPARISON: 03/07/2024 through 11/05/2019 BREAST PARENCHYMAL COMPOSITION: The breasts are extremely dense, which lowers the sensitivity of mamm ography. FINDINGS: There is no evidence of suspicious mass, calcification, or architectural distortion to sugg est malignancy in either breast. There has been no suspicious interval change. IMPRESSION: 1. No mammographic evidence of malignancy. 2. Recommend routine screening mammography in one year. BI-RADS Category 1: Negative Reviewed, dictated and finalized at location B.
--- OUTSIDE RECORDS SUMMARY | 2025-03-18 14:55 | XMS_ITS | Continuity of Care Document ---
Author Organization [facility] Address [address] [place] [address] Phone Care Team Providers Care Planning Associate Name Role Phone Yusuf OD, Mekhi Unavailable Unavailable Procedures Procedure Date Office/outpatient Visit, Est Eye Exam Established Pt Eye Exam, New Patient Advance Directives Directive Yes / No Effective Date File Name No Information Encounters Encounter Description Practice Location Reason(s) For Visit Diagnoses Date Provider Providers Copied on Encounter Office/outpat ient Visit, Est [facility], [address] [place] [address] [address], [place], [place], [id number], tel:[phone] [facility] No Information Nov- 4-201 0 Yusuf OD Mekhi. [address] , [address], [place], [place], [facility], . tel:[phone] [facility], [address] [place] [address] [address], [place], [place], [id number], [place] tel:[phone] [facility] No Information 0 3-200 9 Yusuf OD Mekhi. [address] , [address], [place], [place], [facility], . tel:[phone] [facility], [address], [place], [place], [address], tel:[phone] [facility] No Information 8-200 9 Krishnaskevin Levy. [address] [employer] [address], [address], [place]. tel:[phone] Family History Family Member Type Diagnosis Age At Onset No Information Payers Payer name Insurance type Covered alliance party ID Authoriza tion(s) No Information Social [...]
--- OUTSIDE RECORDS SUMMARY | 2025-03-18 14:55 | XMS_ITS | Data Portability ---
Author Organization [facility] Address [address] [place] [address] Care Team Providers Care Piler Name Role Phone NIKKO TINOCO Primary Care [...] + vertebral fracture assessmen t 2023 024 [facility], [address], [address] [facility], [place], [address], 12/02/2024 04:06:59 MAMMO, screening , digital, bilateral 2023 024 [facility], [address], [address], [place], [address], 03/15/2025 05:00:45 MAMMO, screening , bilateral 2022 023 [facility], [address], [address], [place], [address], 09/23/2023 05:01:16 MAMMO, screening , bilateral 2021 022 [facility], [address], [address], [place], [address], 12/09/2021 09:46:51 DEXA, axial skeleton + vertebral fracture assessmen t 2021 022 [facility], [address], [address], [place], [address], 02/23/2022 11:53:05 Medication Orders estradiol 0.025 mg/24 hr weekly transderm al patch 2023 024 [facility] [address] [facility], [address] [place], [address], 09/03/2024 11:04:40 medroxypr ogesteron e 5 mg tablet 2023 024 [facility] [address] In [facility], [address] [place], [address], 09/03/2024 11:04:26 estradiol 0.025 mg/24 hr weekly transderm al patch 2023 024 [facility] [address] In [facility], [address] [place], [address], 05/21/2024 14:26:41 medroxypr ogesteron e 5 mg tablet 2023 024 [facility] [address] In [facility], [address] [place], [address], 05/21/2024 14:27:36 estradiol 1 mg tablet 2022 023 [facility] [address] In [facility], [facility] [place], [address], 05/21/2024 15:02:24 Provera 5 mg tablet 2022 023 [facility] [address] [address] [place] [address] [place], [address], 12/20/2022 10:30:43 estradiol 1 mg tablet 2021 022 [facility] [address] In [facility], [address] [place] [address], [address], 05/21/2024 15:02:24 Provera 5 mg tablet 2021 022 [facility] [address] [address] [place] [address] [facility], [place], [address], 11/02/2021 13:01:22 estradiol 1 mg tablet 2020 021 [facility] [address] In [facility], [facility] [place], [address], 05/21/2024 15:02:24 Provera 5 mg tablet 2020 021 [facility] [address], [place], [address], 11/15/2020 15:47:05 Patient TargetsNo targets recorded. Patient InstructionsNo instructions recorded. Reason for Referral None Reported. Results Created Date Observation Date Name Description Value Unit Range Abnormal Flag Note LastModifiedBy Organization Detail LastModifiedTime 11/11/19 21 11/11/2020 bautista VINCENT bilat eral No observ ation record ed. [place] [id number], [place], [address], 11/12/2020 11:51:43 12/09/19 22 MAMMO , scree josé miguel, bilat eral No observ ation record ed. [facility] [address], [place], [address], 12/14/2021 14:14:34 02/24/20 22 DEXA, axial skele ton + verte bral fract ure asses sment No observ ation record ed. [address] [place] [address] [address], [place], [address], 03/06/2022 15:56:10 Result Notes None recorded. Problems Name Problem SNOMED Code Status Onset Date Resolution Date Notes Provider Name and Address Organization Details Recorded Time Screenin g for malignan t neoplasm of rectum Completed 201603/06/2022 Encounter for screening for malignant neoplasm of rectum;Pr actice ID: 0001 Nika lewis [facility] 2 15:58:[address] Concept Completed 201703/06/2022 Encntr for general adult medical exam w/o abnormal findings; Practice ID: 0001 Nika lewis [facility] 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 2 15:58:32 Menopaus e present [id number] Completed 201903/06/2022 Menopausa l and female climacter ic states;Pr actice ID: 0001 Nika lewis [facility] 2 15:58:32 Adult health examinat ion Completed 201303/06/2022 Routine general medical examinati on at a health care facility; Practice ID: 0001 Nika lewis [facility] 2 15:58:31 Speciali zed medical examinat ion Completed 201303/06/2022 Routine gynecolog ical examinati on;Practi ce ID: 0001 [facility] 15:58:32 Screenin g for malignan t neoplasm of cervix Completed 201303/06/2022 Pap Smear;Pra ctice ID: 0001 [facility] 2 15:58:31 Human papillom a virus infectio n [id number] Completed 201403/06/2022 HUMAN PAPILLOMA VIRUS IN CONDITION S CLASSIFIE D ELSEWHERE AND OF UNSPECIFI ED SITE;Prac kayla ID: 0001 [facility] 15:58:31 Atypical glandula r cells on cervical Papanico laou smear [id number] Completed 201403/06/2022 Pap Abnormal Endocerv Endometri al Saeed;Prac kayla ID: 0001 Nika Erickson [facility] 2 15:58:32 Conducti on disorder of the heart [id number] Completed 201303/06/2022 Bradycard ia;Record ed Elsewhere : No Locati on: [facility] So urce: EHR Chron ic: N Practic e ID: 0001 Bill able Time: 03:23:25 PM [facility] 15:58:32 Microsco pic hematuri a [id number] Completed 201103/06/2022 HEMATURIA MICROSCOP IC;Practi ce ID: 0001 Nika Erickson [facility] 2 15:58:31 Mammogra phy abnormal [id number] Completed 201303/06/2022 Unspecifi ed abnormal mammogram ;Recorded Elsewhere : No Locati on: [facility] So urce: EHR Chron ic: N Practic e ID: 0001 Bill able Time: 08:46:20 AM Nika lewis [facility] 2 15:58:31 Evaluati on finding [id number] Completed 201803/06/2022 Oth abn and inconclus kelvin findings on dx imaging of breast;Re corded Elsewhere : No Locati on: [facility] So urce: EHR Chron ic: N Practic e ID: 0001 Bill able Time: 09:16:36 AM Nika lewis [facility] 2 15:58:31 Abnormal cervical Papanico laou smear [id number] Completed 201303/06/2022 Other abnormal papanicol aou smear of cervix and cervical HPV;Recor ded Elsewhere : No Locati on: [facility] So urce: EHR Chron ic: N Practic e ID: 0001 Bill able Time: 09:00:00 AM Nika lewis [facility] 2 15:58:32 Problem Notes None recorded. Procedures Surgical History Date Name Laterality Status Provider Name and Address Organization Details Recorded Time 03/07/20 24 Date of Last Mammogram completed Dagmar Ybarra [facility] 09/03/2024 10:00:49 10/22/19 19 Date of Last Pap Smear completed Nika Scott [facility] 12/20/2022 10:23:30 10/15/19 07 Hysteroscopy completed Sherrie Feldman [facility] 11/22/2020 22:55:51 10/15/19 06 completed Sherrie Feldman [facility] 11/22/2020 22:57:25 10/15/19 06 Colonoscopy completed Sherrieroxy Feldman [facility] 11/22/2020 22:54:49 10/15/18 70 Hysteroscopy completed Sherrie Feldman [facility] 11/22/2020 22:56:49 Imaging Results None recorded. Procedure Notes None recorded. Medical Equipment None [...] Elsewher e: No [facility] odify By: reyna [address] ncounter DateTime : 10/18/19 18 02:30:00 PM Not Available Not Available Not Available Evista 60 mg tablet take 1 tablet by oral route every day 10/17 completed Prescrib ed Elsewher e: No Locat ion: Nadiyamyriam chasity [facility] odify By: cierra Butlerou nter DateTime : 12/28/19 16 11:19:23 AM [...] Elsewher e: Yes Loca tion: Edilma gaspar [facility] odify By: kamlesh cavazos DateTime : 05/20/20 11 11:44:09 AM Not Available Not Available Not Available simvastat in 20 mg tablet TAKE 1 TABLET BY MOUTH DAILY active Not Available Not Available No t Available magnesium 100 mg capsule active Prescrib ed Elsewher e: Yes Loca tion: Edilma gaspar [facility] odify By: kaleigh hayes DateTime : 07/16/20 12 10:45:00 AM Not Available Not Available Not Available Synthroid 75 mcg tablet take 1 tablet (75MCG) by oral route every day 08/21 completed Prescrib ed Elsewher e: No [facility] odify By: rai buck DateTime : 07/22/20 13 12:08:03 PM Not Available Not Available Not Available Synthroid 50 mcg tablet take 1 tablet (50MCG) by ORAL route every day 07/21 completed Prescrib ed Elsewher e: No Locat ion: Edilma gaspar [facility] odify By: kaleigh hayes DateTime : [...] Elsewher e: Yes Loca tion: Edilma gaspar [facility] odify By: reyna buck DateTime : 10/22/19 09:30:00 AM Not Available Not Available Not Available levothyro xine 112 mcg tablet PLEASE SEE ATTACHED FOR DETAILED DIRECTIO NS 09/03 completed Not Available Not Available Not Available Vitamins and Minerals tablet active Prescrib ed Elsewher e: Yes Loca tion: Edilma gaspar [facility] odify By: kaleigh hayes DateTime : 07/16/20 12 10:45:00 AM Not Available Not Available Not Available Prempro 0.45 mg-1.5 mg tablet take 1 tablet by oral route every day 12/27 completed Prescrib ed Elsewher e: No Locat ion: Edilma gaspar [facility] odify By: stefani cavazos DateTime : 09/27/20 15 01:30:00 PM Not Available Not Available Not Available Calcio Inocencio 500 mg tablet 12/20 completed Prescrib ed Elsewher e: Yes Loca tion: Edilma gaspar [facility] odify By: kaleigh hayes DateTime : 07/16/20 12 10:45:00 AM Not Available Not Available Not Available Fish Oil 100 mg-160 mg-1,000 mg capsule active Prescrib ed Elsewher e: Yes Loca tion: Edilma gaspar [facility] odify By: kaleigh hayes DateTime : 07/16/20 12 10:45:00 AM Not Available Not Available Not Available glucosami ne-chondr oitin 167 mg-133 mg capsule active Prescrib ed Elsewher e: Yes Loca tion: Edilma gaspar [facility] odify By: kaleigh hayes DateTime : [...] Updated DateTime 11/02/2021 160.66 cm 25.5 kg/m2 68987.89 g 124 mm[Hg] 82 mm[Hg] Real Vences [facility] 2 12:48:10 Date Recorded Systolic blood pressure Diastolic blood pressure Provider Name and Address Organization Details Last Updated DateTime 11/15/2020 122 mm[Hg] 80 mm[Hg] Kristina Gracia, [facility]- [address], [place], [address], [facility] 11/15/2020 15:47:29 Date Recorded Body height Body mass index (BMI) Body weight Provider Name and Address Organization Details Last Updated DateTime 11/15/2020 160.66 cm 24.6 kg/m2 67473.93 g Sherrie Feldman [facility] 11/15/2020 15:34:51 Date Recorded Body weight Systolic blood pressure Diastolic blood pressure Provider Name and Address Organization Details Last Updated DateTime 12/20/2022 17626.93 g 110 mm[Hg] 69 mm[Hg] Nika Scott [facility] 12/20/2022 10:22:51 Date Recorded Body height Body mass index (BMI) Body weight Systolic blood pressure Diastolic blood pressure Provider Name and Address Organization Details Last Updated DateTime 05/21/2024 160.02 cm 23.6 kg/m2 31874.79 g 104 mm[Hg] 67 mm[Hg] Jaclyn Carson [facility] 4 13:59:18 Date Recorded Body height Body mass index (BMI) Body weight Systolic blood pressure Diastolic blood pressure Provider Name and Address Organization Details Last Updated DateTime 09/03/2024 160.02 cm 22.7 kg/m2 60841.82 g 112 mm[Hg] 71 mm[Hg] Dagmar Ybarra [facility] 10:00:40 Social History Question Answer Notes LastModified by Organizat ion Details LastModified Time Tobacco Smoking Status Never Smoker Nika Scott [facility] 12/20/2022 10:23:56 Do You Have An Advance Directive? No Information n ot available 11/02/2021 Are You Blind Or Do You Have [...] Or The Highest Degree You Have Received? [id number] Information not available 11/02/2021 Are There Any Guns Present In Your Home? No Information not available 11/02/2021 Have You Ever Been Counseled For Unhealthy Alcohol Use? No [email or web address] Information not available 12/20/2022 Do You Use Protection During Sex? Always Information not available 11/02/2021 Do You Use Your Seat Belt Or Car Seat Routinely? Yes Information not available 11/02/2021 Do You Have Smoke And Carbon Monoxide Detectors In Your Home? Yes Information not available 11/02/2021 How Much Tobacco Do You Smoke? No Information not available 11/02/2021 Do You Use Sunscreen Routinely? Yes Information not available 11/02/2021 Has Tobacco Cessation Counseling Been Provided? No [email or web address] Information not available 12/20/2022 Have You Used IV Drugs? No Information not available 11/02/2021 Do You Have Difficulty Walking Or Climbing Stairs? No Information not available 12/20/2022 Sex: Unknown Functional Status Question Answer Note LastModified by Organizat ion Details LastModified Time Do you use any illicit or recreational drugs? No [email or web address] Information not available 11/22/2020 What is your level of alcohol consumption? Occasional [email or web address] Information not available 11/22/2020 Are you able to walk? YESWOREST Information not available 11/02/2021 Are you able to care for yourself? 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 No Information not available 12/20/2022 What is your exercise level? Occasional [email or web address] Information not available 11/22/2020 Mental Status Question Answer Note LastModified by Organization D etails LastModified Time Do you feel stressed (tense, restless, nervous, or anxious, or unable to sleep at night)? [id number] Information not available 11/02/2021 Family History Relationship Description Onset Age of this Age Resolved Age Notes LastModified by Organization Details LastModified Time Father Asthma [email or web address] Not available 11/22/2020 22:53:07 Father History of emphysema [email or web address] Not available 2023 09:47:19 Medical History Condition [...] SNOMED-CT Code Diagnosis ICD10 Code Diagnosis Note [id number] Kristina Gracia , [facility] [address] [address] 11/15/2020 15:06:39 11/19/2020 15:54:53 Menopausal and postmenopausal disorders 318930817 N95.1 We discussed Menopausal Hormone therapy (MHT) [...] migraine w/ visual changes, breast cancer dx, AK/stroke, DVT/PE, Endometria l cancer. Please contact office [...] this patient s visit, including available hand reclamation supervisor upon arrive, temperatur e check and being asked a series of screening questions. All staff wore face coverings during this encounter, as well as provided additional cleaning and sanitizing of all surfaces, including countertop s, pens, chairs, door handles, light switches, etc, prior to and following the patient s visit. [id number] Kristina Gracia [facility] [address] [address] 11/02/2021 12:34:56 11/02/2021 13:52:03 Gynecologic examination 57823009 Z01.419 Take Calcium with Vitamin D 12-1500mg daily. Do monthly self breast exams. It is advised to get annual flu shot in the fall and she could obtain at [facility] or [facility] care clinic. If you haven't received the [...] o issues or concerns Screening mammography 24 483760 Z12.31 Postmenopausal state 764 80342 Z78.0 Hormone re placement therapy 616038397 Z79.890 Her third attempt to wean off HRT was again unsuccessf ul.Disrupt s her mood/hot flashes/ni ght sweats--re gardless of slow weaning schedule previously given to try. We again reviewed R/B's etc of this therapy which she chooses to consent to accepting. RF sent x 1yr Hx reviewed & no new health conditions or illnesses changed. [id number] Kristina Gracia , [facility] [address] [address] 12/20/2022 10:13:18 12/20/2022 10:42:38 Gynecologic examination 78851837 Z01.419 Take Calcium with Vitamin D 12-1500mg daily. Do monthly self breast exams. It is advised to get annual flu shot in the fall and she could obtain at [facility] or [facility] take care clinic. If you haven't [...] or concernsLa bs PCP Screening mammography 24 350156 Z12.31 Hormone re placement therapy 708139001 Z79.890 Counseled on the following: Females >10yrs [...] her quality of life. RF sent x 1yr [id number] BRITNEY Gore Dingess [address] [address] 05/21/2024 13:52:55 05/21/2024 15:07:53 Gynecologic examination 36759316 Z01.419 WWEmammogr am UTDcolon cancer screening [facility] / PCP Do monthly self [...] have been answered. Hormone re placement therapy 016282726 Z79.890 Counseled on the following: Females >10yrs [...] med check in 3 months BRITNEY Gore [place] [address] [address] 09/03/2024 09:47:11 09/03/2024 11:08:47 Menopausal symptom 62313378 N95.1 Counseled on the following: Females >10yrs past menopause (& age 60yo+) are generally not good candidates for starting (1st use) systemic HT. Decisions to continue systemic HT > a decade past menopause (or past age 60yo) requires balancing R/B's; & individual ized needs. Non-hormon al options may be more appropriat e for females >10yrs past menopause. Accepts risks for continuing this therapy.Sh chasity voices she tries every year to wean off slowly & every time hot flashes and night sweats come back terribly affecting her quality of life. refills sent, pt aware of r/b Screening for malignant neoplasm of breast 038253647 Z12.39 Screening for osteoporosis 446702832 Z13.820 Gynecologi c examination 65647265 Z01.419 mammogram order givendexa order givencolon oscopy [...] have been answered. 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 Member ID Guarantor Name 11/15/2020 1 [facility] (MEDICARE REPLACEMENT /ADVANTAGE - PPO) [id number] Chana Snell [id number] Carlos Alberto Snell 11/02/2021 1 [facility] (MEDICARE REPLACEMENT /ADVANTAGE - PPO) [id number] Chana Snell [id number] Carlos Alberto Snell 12/20/2022 1 [employer] (MEDICARE REPLACEMENT /ADVANTAGE - PPO) [id number] Chana Snell [id number] Carlos Alberto Snell 05/21/2024 1 [employer] (MEDICARE REPLACEMENT /ADVANTAGE - PPO) [id number] Chana Snell [id number] Carlos Alberto Snell 09/03/2024 1 [employer] (MEDICARE REPLACEMENT /ADVANTAGE - PPO) [id number] Chana Noble Alis [id number] Carlos Alberto Real Snell Notes Date Note Type Note Provider [...] to continue this method of therapy. Kristina [facility] [address], [place], [address], [facility] 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 Has tried and failed multiple attempts to wean down/off of HRT. Has tried non-hormonal therapies for hot flashes with no success. Desires to continue on this therapy. BRITNEY Gore [address], [place], [address], [facility] 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 09/03/2024 11:05:11 OBGyn Episode No OBEpisode recorded.
== END 2025-03-18 14:43 | disposition home or self-care (01) ==
LOC: ANHIMG 14:44
PROVIDERS: PCP Family Medicine; Visit Provider Family Medicine
DX: Z12.31 Encounter for screening mammogram for malignant neoplasm of breast (principal)
CPT/HCPCS: 77063; 77067

== ENCOUNTER 2025-06-25 09:58 | Outpatient (CLI) | payer MEDICARE, SELFPAY ==
[2025-06-25 10:28] LABS: Hematocrit 39.4 % (35.0-42.0); Hemoglobin 12.5 g/dL (11.7-13.8); Immature Granulocyte Percent A 0.3 % (0.0-0.0); Lymphocytes Absolute Auto 1.92 K/mm3 (1.10-4.50); Mean Corpuscular HGB Conc 31.7 g/dL (32-36); Mean Corpuscular Hemoglobin 30.6 pg (27.0-31.0); Mean Corpuscular Volume 96.6 fL (78.0-102.0); Nucleated Red Blood Cells Absolute Auto 0.00 K/mm3 (0.00-0.00); Nucleated Red Blood Cells Perc 0.0 % (0-0.0); Platelet Count Result 170 K/mm3 (150-420); Red Blood Count 4.08 M/mm3 (4.20-5.40); White Blood Count 5.8 K/mm3 (4.8-10.8)
[2025-06-25 10:48] LABS: Alanine Aminotransferase 21 U/L (6-35); Albumin Level 4.2 g/dL (3.5-5.1); Alkaline Phosphatase 50 U/L (38-126); Anion Gap 9 mmol/L (4-12); Aspartate Amino Transferase 31 U/L (14-36); Bilirubin,Total 0.6 mg/dL (0.2-1.3); Blood Urea Nitrogen 18 mg/dL (7-17); Calcium 9.0 mg/dL (8.4-10.2); Carbon Dioxide 27 mmol/L (22-30); Chloride 107 mmol/L (98-107); Cholesterol 187 mg/dL (0-200); Estimated Glomerular Filt Rate > 60; Glucose 95 mg/dL (65-110); HDL Direct 70 mg/dL; Osmolality Calculated 297 mOsm/kg (285-295); Potassium 4.6 mmol/L (3.4-5.0); Sodium 143 mmol/L (137-145); Total Protein 7.1 g/dL (6.3-8.2); Triglycerides 76 mg/dL (<150)
[2025-06-25 10:49] LABS: Hemoglobin A1C 5.6 % (<5.7)
[2025-06-25 11:04] LABS: Free T4 Free Thyroxine 1.64 ng/dL (0.78-2.19)
[2025-06-25 11:18] LABS: Thyroid Stimulating Hormone 0.182 uIU/mL (0.465-4.680)
== END 2025-06-25 09:59 | disposition home or self-care (01) ==
LOC: CHSLAB 09:58
PROVIDERS: PCP Family Medicine; Visit Provider Student in an Organized Health Care Education/Training Program
DX: E78.5 Hyperlipidemia, unspecified (principal); R73.03 Prediabetes; E03.9 Hypothyroidism, unspecified; R94.6 Abnormal results of thyroid function studies; R53.83 Other fatigue
CPT/HCPCS: 36415; 80053; 80061; 83036; 84439; 84443; 85025